=== PATIENT | male | born 1950 | race Caucasian/White ===

== ENCOUNTER 2019-11-04 23:50 | Inpatient (IN) | payer MEDICARE, MEDICAID, SELFPAY ==
[2019-11-04 23:51] VITALS: BP 147/83; PULSE 86; RESP 18; TEMP 36.6; O2SAT 99; BMI 21.2
--- NOTE | 2019-11-04 23:54 | XRR_ITS ---
PROCEDURE INFORMATION: Exam: XR Right Foot Complete Exam date and time: 11/05/2019 12:33 AM Age: 69 years old Clinical indication: Injury or trauma; Initial encounter; Blunt trauma; Foot; Right; Injury date: 11/04/19; Injury details: Fall-twisted ankle. Obvious deformity ankle and open wound TECHNIQUE: Imaging protocol: XR Right foot. Views: 3 or more views. COMPARISON: No relevant prior studies available. FINDINGS: Bones/joints: Mild degenerative changes at the first metatarsal phalangeal joint. Degenerative changes are present in the distal interphalangeal joints and to a lesser degree the more proximal interphalangeal articulations. Spur formation at the insertion of the Achilles' tendon and plantar aponeurosis. Suspected dislocation at the tibiotalar joint. Soft tissues: Normal. XR/XR foot RT min 3V* [id number] IMPRESSION: 1. Spur formation at the insertion of the Achilles' tendon and plantar aponeurosis. 2. Suspected dislocation at the tibiotalar joint. Degenerative changes within the foot
--- NOTE | 2019-11-04 23:54 | XRR_ITS ---
PROCEDURE INFORMATION: Exam: XR Right Ankle Exam date and time: 11/05/2019 12:31 AM Age: 69 years old Clinical indication: Injury or trauma; Initial encounter; Blunt trauma; Right; Injury date: 11/04/19; Injury details: Fall-twisted ankle. Obvious deformity and open wound TECHNIQUE: Imaging protocol: XR Right ankle. Views: 3 or more views. COMPARISON: No relevant prior studies available. FINDINGS: Bones/joints: Obliquely oriented fracture distal aspect of the fibula with displacement. Apparent fracture of the medial malleolus with displacement. Lateral subluxation/dislocation of the talus in relation to the tibia. Soft tissues: Normal. XR/XR ankle RT min 3V* [id number] IMPRESSION: Obliquely oriented fracture distal aspect of the fibula with displacement. Apparent fracture of the medial malleolus with displacement. Lateral subluxation/dislocation of the talus in relation to the tibia.
--- NOTE | 2019-11-04 23:54 | XRR_ITS ---
PROCEDURE INFORMATION: Exam: XR Right Tibia and Fibula Exam date and time: 11/05/2019 12:31 AM Age: 69 years old Clinical indication: Injury or trauma; Initial encounter; Blunt trauma; Lower leg; Injury date: 11/04/19; Injury details: C/O fall and pain RT tib/fib twisting right ankle. Obvious deformity and open injury TECHNIQUE: Imaging protocol: XR Right tibia and fibula. Views: 2 views. COMPARISON: No relevant prior studies available. FINDINGS: Bones/joints: Obliquely oriented fracture involving the distal aspect of the fibula. Apparent lateral dislocation of the talus in relation to the tibial plafond. Please refer to the ankle dictation. Proximal aspect of the tibia and fibula are normal. XR/XR tibia fibula RT 2V [id number] IMPRESSION: 1. Obliquely oriented fracture involving the distal aspect of the fibula. Apparent lateral dislocation of the talus in relation to the tibial plafond. Please refer to the ankle dictation. 2. Proximal aspect of the tibia and fibula are normal.
--- NOTE | 2019-11-04 23:57 | XRR_ITS ---
PROCEDURE INFORMATION: Exam: XR Chest, 1 View Exam date and time: 11/05/2019 12:33 AM Age: 69 years old Clinical indication: Injury or trauma; Initial encounter; Blunt trauma (contusions or hematomas); Injury date: 11/04/19; Injury details: Fall; Twisted RT ankle. Obvious deformity and open wound; Additional info: Fall/injury TECHNIQUE: Imaging protocol: XR of the chest Views: 1 view. COMPARISON: No relevant prior studies available. FINDINGS: Lungs: Unremarkable. No consolidation. Pleural space: Unremarkable. No pleural effusion. No pneumothorax. Heart/Mediastinum: Unremarkable. No cardiomegaly. Bones/joints: Unremarkable. XR/XR chest 1V portable [id number] IMPRESSION: No acute findings.
[2019-11-05] VITALS (22 sets, daily range): BP systolic 104–164; BP diastolic 53–100; PULSE 65–98; RESP 12–20; TEMP 36.4–36.9; O2SAT 90–100
--- NOTE | 2019-11-05 | SCC_ITS ---
PROCEDURE DONE: 2 Kaleb headless screws 4 stabilization of medial malleolus partially-threaded 4.0 mm cannulated screw for stabilization of syndesmosis (distal tibiofibular joint) 33.1 seconds of fluoroscopic guidance, for a cumulative dose of 0.89 mGy, was provided to Dr. Nava by the radiology department. C-arm images of the RIGHT ankle were saved for the patient's permanent record. JOCELYN
[2019-11-05] MEDS: ondansetron 2 mg/ML SDV 2 mL 4 MG IVP ×3 (00:24→17:05)
[2019-11-05] MEDS: morphine 4 mg/mL SDV 1 mL IVP (00:25)
[2019-11-05] MEDS: sodium chloride 0.9% 1,000 ML 100 ML IV ×3 (00:27→21:24)
[2019-11-05 00:41] LABS: Basophils % 0.3 %; Eosinophils # 0.1 10^3/uL (0.0-0.8); Eosinophils % 1.4 %; Hematocrit 34.1 % (42.0-52.0); Hemoglobin 11.6 g/dL (11.7-16.6); Lymphocytes # 1.5 10^3/uL (0.8-4.8); Lymphocytes % 21.6 %; Mean Corpuscular Hemoglobin 30.5 pg (28.0-34.0); Mean Corpuscular Volume 89.7 fL (80-94); Mean Platelet Volume 9.8 fL (7.4-10.4); Monocytes # 0.4 10^3/uL (0.2-0.9); Monocytes % 5.8 %; Neutrophils # 4.98 10^3/uL (1.8-7.7); Neutrophils % 70.3 %; Nucleated Red Blood Cells % 0 %; Platelet Count 163 10^3/cmm (130-400); Red Cell Distribution Width 14.1 % (12.1-15.1); White Blood Count 7.1 10^3/uL (4.0-10.0)
[2019-11-05 00:50] LABS: INR 1.15 (0.8-1.2)
[2019-11-05 00:54] LABS: Alanine Aminotransferase 33 U/L (0-41); Albumin Level 2.9 g/dL (3.5-5.2); Alkaline Phosphatase 175 IU/L (40-130); Anion Gap 12.7 (5-19); Aspartate Amino Transferase 33 U/L (0-40); Blood Urea Nitrogen 26 mg/dL (8-23); Calcium 8.7 mg/dL (8.5-10.5); Carbon Dioxide 32 mmol/L (22-29); Chloride 94 mmol/L (98-107); Globulin 2.1 g/dL (1.3-4.6); Glomerular Filtration Rate 54.9 mL/min (90-130); Glucose 293 mg/dL (65-115); Magnesium 1.7 mg/dL (1.7-2.3); Osmolality Calculated 288 mOsm/kg (285-295); Potassium 3.7 mmol/L (3.5-5.1); Sodium 135 mmol/L (136-145); Total Bilirubin 0.5 mg/dL (0.15-1.2)
--- NOTE | 2019-11-05 01:04 | ED_ITS ---
HPI - Extremity Problem General: Chief complaint: Extremity Injury, Lower Stated complaint: ANKLE PAIN Time Seen by Provider: 11/04/19 23:54 Source: patient, family and EMS Mode of arrival: EMS Limitations: no limitations History of Present Illness: HPI Narrative: Pastor is a 69-year-old male who slipped and fell at home twisting his right ankle. He had an obvious deformity with an open injury and evidence of bone coming out of the wound. Patient son is a medic and he reduced this at home. Patient denies any injury to his head, neck, chest, back, abdomen or any other area other than to his right ankle. Patient has a pulse intact to the foot. He denies any loss of sensation. He denies being on any blood thinners. Associated symptoms: Deny chest pain, fever(s) or rash Review of Systems Const: Denies: fever(s), chills, body aches, fatigue, malaise or diaphoresis Eyes: Denies: change in vision, blurry vision, blind spots, photophobia, eye discharge or eye redness ENMT: Denies: throat pain, odynophagia, hoarseness, swelling of lips/tongue, oral sores, ear or mastoid pain, ear discharge, change in hearing or nasal discharge Card: Denies: chest pain, palpitations, irregular heart rhythm, edema, lightheadedness, syncope, pre-syncope, dyspnea on exertion or orthopnea Resp: Denies: dyspnea, productive cough, non-productive cough, wheezing, hemoptysis or chest congestion GI: Denies: abdominal pain, nausea, vomiting, hematemesis, coffee ground emesis, heartburn, diarrhea, constipation, GI cramping, hematochezia or melena : Denies: flank pain, dysuria, urinary frequency, urinary urgency or hematuria Musc: Reports: joint pain; Denies: neck pain, back pain, extremity pain, extremity swelling, joint swelling, joint redness, joint warmth or joint stiffness Skin/Breast: Denies: rash, pruritus, erythema, skin tenderness or jaundice Neuro: Denies: headache(s), numbness in extremities, weakness in extremities, sensory changes, lack of coordination, difficulty walking, dizziness, vertigo, confusion, Slurred speech present or seizure-like activity Christian/Lymph: Denies: easy bruising, easy bleeding, petechiae, purpura or enlarged lymph nodes All/Imm: Denies: urticaria, throat swelling, tongue swelling, facial swelling or acute wheezing PFSH ED PFSH: Medical History (Updated 11/05/19 @ 02:15 by Isaiah Nava DO) ASHD (arteriosclerotic heart disease) COPD (chronic obstructive pulmonary disease) CVA (cerebral vascular accident) Diabetes Dyslipidemia HTN (hypertension) Myocardial infarction Open bimalleolar fracture of right ankle Surgical History S/P PTCA (percutaneous transluminal coronary angioplasty) Family History Mother CAD (coronary artery disease) PATERNAL Myocardial infarction Father CAD (coronary artery disease) Grandmother CAD (coronary artery disease) Diabetes MATERNAL Myocardial infarction Sister Myocardial infarction CAD (coronary artery disease) Other Stroke Physical Exam Const: COMMON NORMALS: no acute distress, patient oriented x3, no limitations, healthy appearing and well nourished GENERAL APPEARANCE: cooperative, well kempt and well developed HENMT: COMMON NORMALS: normocephalic, atraumatic, external ears normal, EAC's normal and Normal external nose present HEAD & SCALP: normal to inspection, normocephalic and atraumatic FACE & SINUS: normal facial exam and face symmetric NOSE: Normal external nose present and Normal nares present EXTERNAL EAR: Yes external ears normal EXTERNAL AUDITORY CANAL: EAC's normal MOUTH: Normal oral and palatal mucosa present, lip normal and tongue normal Eye: COMMON NORMALS: Equal, round and reactive pupils present and conjunctivae normal GENERAL EYE: appearance normal, both eyes and all related structures ALIGNMENT: Yes alignment normal PERIORBITAL: periorbital findings normal EYELID: eyelids normal CONJUNCTIVA: Yes conjunctivae normal SCLERA: sclerae normal PUPIL: Yes Equal, round and reactive pupils present Neck/C-Spine: COMMON NORMALS: full ROM, no lymphadenopathy, supple, no meningeal signs and no JVD GENERAL: Yes normal visual inspection and Yes trachea midline Chest: COMMONS NORMALS: normal inspection of the chest and normal palpation of entire chest wall Resp: COMMON NORMALS: normal respiratory effort, No retractions and No use of accessory muscles EFFORT & INSPECTION: Yes able to speak in complete sentences and Yes symmetric chest movement AUSCULTATION: no crackles, no rales, no rhonchi and no wheezes Cardio: COMMON NORMALS: no JVD, regular rate, regular rhythm, S1 normal heart sound present and S2 normal heart sound present RATE: regular rate RHYTHM: regular rhythm HEART SOUNDS: S1 normal heart sound present, S2 normal heart sound present, no click, no gallops, no murmurs, no rubs and abnormal split S2 GI: COMMON NORMALS: Soft to palpation and No hepatosplenomegaly present PALPATION: Yes Soft to palpation, No Tenderness to palpation present (GI), No Guarding due to palpation present (GI), No Rigid due to palpation, Yes No hepatosplenomegaly present, No Hernia present, No Palpable mass present and No Pulsatile mass present : COMMON NORMALS: Yes no CVA tenderness BLADDER/KIDNEY EXAM: Yes no CVA tenderness Back/Pelvis: COMMON NORMALS: no CVA tenderness, thoracic and lumbar spine normal to inspection, no thoracic nor lumbar tenderness and thoraco-lumbar ROM normal Extremity: NARRATIVE EXTREMITY EXAM: Musculoskeletal exam is unremarkable except of the right ankle. Her ankle has an obvious 5 cm medial laceration but is neurovascular intact distal. There is no exposed bone. There is clinical evidence of lateral subluxation. Neuro: COMMON NORMALS: patient oriented x3, CN's II-XII intact bilaterally, moves all extremities, no focal motor deficits and no sensory deficits noted MENINGEAL SIGNS: Yes no meningeal signs SPEECH: speech normal Psych: COMMON NORMALS: mental status grossly normal, Normal thought process present, cooperative, normal affect, speech normal and activity/motor behavior normal APPEARANCE: Yes well kempt SPEECH: Yes normal speech THOUGHT PROCESS: Normal thought process present Skin: COMMON NORMALS: no rashes or lesions noted, turgor normal, no jaundice, no petechiae and no mottling GENERAL SKIN EXAM: no rashes or lesions noted and turgor normal Course Vital Signs: Vital signs: Vital Signs Temperature 97.9 F 11/04/19 23:51 Pulse Rate 74 11/05/19 01:30 Respiratory Rate 16 11/05/19 01:30 Blood Pressure 156/83 11/05/19 01:30 Pulse Oximetry 97 11/05/19 01:30 MDM - Extremity (Nontraumatic) MDM Narrative: Medical decision making narrative: The case was reviewed with Dr. Nava, he is going to come take the patient to the operating room for GABRIELLE F. Antibiotics have been given. Dr. Amaral is aware of her consult. Lab Data: Labs: Lab Results 11/04/19 11/04/19 11/05/19 Range/Units 00:30 00:30 00:31 WBC 7.1 (4.0-10.0) 10^3/ uL RBC 3.80 L (4.1-5.3) 10^6/u L Hgb 11.6 L (11.7-16.6) g/dL Hct 34.1 L (42.0-52.0) % MCV 89.7 (80-94) fL MCH 30.5 (28.0-34.0) pg MCHC 34.0 (30.0-36.0) g/dL RDW 14.1 (12.1-15.1) % Plt Count 163 (130-400) 10^3/c mm MPV 9.8 (7.4-10.4) fL Neut % (Auto) 70.3 % Lymph % (Auto) 21.6 % [place] % (Auto) 5.8 % Eos % (Auto) 1.4 % Baso % (Auto) 0.3 % Neut # (Auto) 4.98 (1.8-7.7) 10^3/u L Lymph # (Auto) 1.5 (0.8-4.8) 10^3/u L [place] # (Auto) 0.4 (0.2-0.9) 10^3/u L Eos # (Auto) 0.1 (0.0-0.8) 10^3/u L Baso # (Auto) 0.0 (0.0-0.1) 10^3/u L Nucleated RBC % (a uto) 0 % Nucleated RBCs # 0.0 /100WBC PT 15.10 H (10.5-13.3) SECO NDS INR 1.15 (0.8-1.2) Sodium 135 L (136-145) mmol/L Potassium 3.7 (3.5-5.1) mmol/L Chloride 94 L (98-107) mmol/L Carbon Dioxide 32 H (22-29) mmol/L Anion Gap 12.7 (5-19) BUN 26 H (8-23) mg/dL Creatinine 1.3 H (0.7-1.2) mg/dL GFR Calculation 54.9 L (90-130) mL/min Glucose 293 H (65-115) mg/dL POC Glucose (70-110) mg/dL Calculated Osmolal ity 288 (285-295) mOsm/k g Calcium 8.7 (8.5-10.5) mg/dL Magnesium 1.7 (1.7-2.3) mg/dL Total Bilirubin 0.5 (0.15-1.2) mg/dL AST 33 (0-40) U/L ALT 33 (0-41) U/L Alkaline Phosphata se 175 H (40-130) IU/L Total Protein 5.0 L (6.6-8.7) g/dL Albumin 2.9 L (3.5-5.2) g/dL Globulin 2.1 (1.3-4.6) g/dL 11/05/19 Range/Units 02:13 WBC (4.0-10.0) 10^3/ uL RBC (4.1-5.3) 10^6/u L Hgb (11.7-16.6) g/dL Hct (42.0-52.0) % MCV (80-94) fL MCH (28.0-34.0) pg MCHC (30.0-36.0) g/dL RDW (12.1-15.1) % Plt Count (130-400) 10^3/c mm MPV (7.4-10.4) fL Neut % (Auto) % Lymph % (Auto) % [place] % (Auto) % Eos % (Auto) % Baso % (Auto) % Neut # (Auto) (1.8-7.7) 10^3/u L Lymph # (Auto) (0.8-4.8) 10^3/u L [place] # (Auto) (0.2-0.9) 10^3/u L Eos # (Auto) (0.0-0.8) 10^3/u L Baso # (Auto) (0.0-0.1) 10^3/u L Nucleated RBC % (a uto) % Nucleated RBCs # /100WBC PT (10.5-13.3) SECO NDS INR (0.8-1.2) Sodium (136-145) mmol/L Potassium (3.5-5.1) mmol/L Chloride (98-107) mmol/L Carbon Dioxide (22-29) mmol/L Anion Gap (5-19) BUN (8-23) mg/dL Creatinine (0.7-1.2) mg/dL GFR Calculation (90-130) mL/min Glucose (65-115) mg/dL POC Glucose 240 (70-110) mg/dL Calculated Osmolal ity (285-295) mOsm/k g Calcium (8.5-10.5) mg/dL Magnesium (1.7-2.3) mg/dL Total Bilirubin (0.15-1.2) mg/dL AST (0-40) U/L ALT (0-41) U/L Alkaline Phosphata se (40-130) IU/L Total Protein (6.6-8.7) g/dL Albumin (3.5-5.2) g/dL Globulin (1.3-4.6) g/dL Imaging Data^: CXR: My impression: No acute cardiopulmonary or traumatic findings. Right tib-fib, right ankle, right foot: My impression: Bimalleolar ankle fracture with lateral subluxation. Discharge Plan Discharge Patient Disposition: Placed in Observation Clinical Impression: Open right ankle fracture Qualifiers: Encounter type: initial encounter Open fracture type: open type I or II Qualified Code(s): S82.891B - Other fracture of right lower leg, initial encounter for open fracture type I or II Condition: Stable Discharge Date/Time: 11/05/19 02:00 Coding Level of Care Code ED Inset Cutter for Anahi Fwd Exam Comprehensive
--- NOTE | 2019-11-05 01:05 | ECG_ITS ---
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 Measurements Intervals [place] Rate: 80 P: 69 OR: 162 QRS: 23 QRSD: 92 T: 60 QT: 284 QTc: 329 Interpretive Statements SINUS RHYTHM WITH OCCASIONAL VENTRICULAR PREMATURE COMPLEXES NONSPECIFIC T-WAVE ABNORMALITY No previous ECG available for comparison Electronically Signed On 11-05-2019 15:37:17 CDT by Ange Bernal M.D. [id number]
--- NOTE | 2019-11-05 02:10 | PM.CONSULT ---
Providers/Reason For Consult Consulting Physican/Specialty*: Isaiah Nava DO Orthopedic Surgery Reason for Consult*: Open fracture right ankle Attending Physician: Hospitalist Primary Care Provider: Terra Good MD History of Present Illness History of Present Illness Hakeem Baumann is a 69 year old male with multiple medical problems to include poorly controlled diabetes mellitus, coronary disease, COPD, atherosclerotic vascular disease, status post KS, chronic pain medication in the form of oral morphine and tramadol who sustained a mechanical fall at home after going to the bathroom and turning in the hallway. He states he has a bad neuropathy and this may well have contributed to his fall. He offers no complaints of loss of consciousness palpitations chest pain. Review of Systems Const: Denies: fever(s) or chills Card: Denies: chest pain, palpitations, lightheadedness or syncope Resp: Denies: dyspnea, productive cough or non-productive cough GI: Denies: abdominal pain, nausea or vomiting Musc: Reports: extremity pain (Right ankle pain from injury) Neuro: Reports: numbness in extremities (Due to diabetic neuropathy) Meds/Allergies Home Medications and Allergies Home Medications Medication Instructions Recorded Confirmed Last Taken Type alprazolam 0.25 mg tablet 0.25 mg PO BID 09/02/19 09/03/19 Unknown History aspirin 325 mg tablet,delayed 325 mg PO DAILY 09/02/19 09/03/19 Unknown History release citalopram 10 mg tablet 10 mg PO DAILY 09/02/19 09/02/19 Unknown History cyclobenzaprine 10 mg tablet 10 mg PO TID 09/02/19 09/03/19 Unknown History donepezil 10 mg tablet 10 mg PO DAILY 09/02/19 09/03/19 Unknown History fluticasone propionate 50 1 spray INTRANASAL DAILY 09/02/19 09/03/19 Unknown History mcg/actuation nasal spray,suspension hydrochlorothiazide 50 mg tablet 25 mg PO DAILY tab 09/02/19 09/03/19 Unknown History insulin detemir U-100 100 unit/mL 70 unit SUBCUT BID ml 09/02/19 09/03/19 Unknown History (3 mL) subcutaneous pen labetalol 200 mg tablet 200 mg PO DAILY PRN tab 09/02/19 09/03/19 Unknown History levothyroxine 25 mcg capsule 25 mcg PO DAILY 09/02/19 09/03/19 Unknown History losartan 100 mg tablet 50 mg PO DAILY tab 09/02/19 09/03/19 Unknown History morphine 15 mg immediate release 15 mg PO Q6H PRN 09/02/19 09/03/19 Unknown History tablet niacin 100 mg tablet 100 mg PO BID 09/02/19 09/03/19 Unknown History nitroglycerin 0.4 mg sublingual 0.4 mg SUBLINGUAL Q5M PRN 09/02/19 09/03/19 Unknown History tablet potassium chloride 20 mEq 20 meq PO BID 09/02/19 09/03/19 Unknown History tablet,extended release(part/cryst) pregabalin 50 mg capsule 50 mg PO BID 09/02/19 09/03/19 Unknown History rosuvastatin 5 mg tablet 5 mg PO DAILY 09/02/19 09/03/19 Unknown History terazosin 1 mg capsule 1 mg PO DAILY 09/02/19 09/03/19 Unknown History tramadol 50 mg tablet 50 mg PO Q6H PRN 09/02/19 09/03/19 Unknown History duloxetine 60 mg capsule,delayed 60 mg PO DAILY 09/03/19 09/03/19 Unknown History release Allergies Allergy/AdvReac Type Severity Reaction Status Date / Time baclofen Allergy Unknown Unknown Verified 09/02/19 08:16 cetirizine [From Zyrtec] Allergy Unknown Unknown Verified 09/02/19 08:16 diltiazem [From Cardizem] Allergy Unknown Unknown Verified 09/02/19 08:16 fluticasone Allergy Unknown Unknown Verified 09/02/19 08:16 [From Advair Diskus] methadone Allergy Unknown Unknown Verified 09/02/19 08:16 Oxacephems Allergy Unknown Unknown Verified 09/02/19 08:16 oxycodone Allergy Unknown Unknown Verified 09/02/19 08:16 salmeterol Allergy Unknown Unknown Verified 09/02/19 08:16 [From Advair Diskus] zonisamide [From Zonegran] Allergy Unknown Unknown Verified 09/02/19 08:16 cyclobenzaprine Allergy Unknown Verified 09/02/19 08:16 [From Flexeril] Current Medications Current Medications Generic Name Dose Route Start Last Admin Trade Name Freq PRN Reason Stop Dose Admin Sodium Chloride 1,000 mls @ 100 mls/hr 11/04/19 23:45 11/05/19 01:50 Sodium Chloride 0.9% IV Infused .Q10H ЕЛЕНА Infusion PFSH Acute PFSH: Medical History (Updated 11/05/19 @ 02:15 by Isaiah Nava DO) ASHD (arteriosclerotic heart disease) COPD (chronic obstructive pulmonary disease) CVA (cerebral vascular accident) Diabetes Dyslipidemia HTN (hypertension) Myocardial infarction Open bimalleolar fracture of right ankle Surgical History S/P PTCA (percutaneous transluminal coronary angioplasty) Family History Mother CAD (coronary artery disease) PATERNAL Myocardial infarction Father CAD (coronary artery disease) Grandmother CAD (coronary artery disease) Diabetes MATERNAL Myocardial infarction Sister Myocardial infarction CAD (coronary artery disease) Other Stroke Vitals/I&O/Wt Last Vital Signs Temp 97.9 F 11/04/19 23:51 Pulse 74 11/05/19 01:30 Resp 16 11/05/19 01:30 BP 156/83 11/05/19 01:30 Pulse Ox 97 11/05/19 01:30 11/04/19 11/04/19 11/05/19 14:59 22:59 06:59 Intake Total 1050 / 1050 Balance 1050 / 1050 Weight last 48 hrs Weight 152 lb Physical Exam Narrative: EXAM NARRATIVE: 69-year-old white male in mild distress. He looks older than his stated age. Head is normocephalic atraumatic. Sclera are anicteric. Membranes are moist. Neck is supple. Lungs are clear to auscultation no wheeze rales or crackles auscultated. Heart is regular rate and rhythm. Abdomen soft nontender Examination right ankle has a dressing overlying the wound which is moist and has bloody tingeing. Toes have normal capillary refill. He has some sensation to the toes but states they are abnormal due to his underlying neuropathy. Review of radiographs taken in the emergency room show a displaced right bimalleolar ankle fracture with disruption of the syndesmosis as well. By history the patient's son who was a MP did self aid but he cared reduce the gross deformity in the field. A&P Assessment and plan (1) Open bimalleolar fracture of right ankle: Plan will be to take the patient to the operating room on an emergent basis this evening to washout and debride his wound stabilize the fractures as well as the distal tibiofibular joint and attempt to perform loose primary closure over the medial aspect of the joint. Cultures will be taken to monitoring potential organisms that could be left after debridement. Patient be started on intravenous antibiotics postoperatively and continued on oral antibiotics on outpatient basis. His care is likely to require greater than 2 overnight stays for pain control mobilization and disposition to home with home health versus assisted facility. Due to the patient's multiple medical issues. He is at risk for wound healing complications, he is at risk for developing a neuropathic or Charcot ankle which could cause disruption of the implants. He is at risk of having wound healing complications and displacement of his hardware or fracture that could result in the need to perform a below-knee amputation to salvage his limb. Medical complications surrounding his care can include blood clots, heart attack, stroke and risk up to including . With the patient's consent we will proceed to the OR on an emergent basis. Status: Acute (2) ASHD (arteriosclerotic heart disease): Status: Acute (3) COPD (chronic obstructive pulmonary disease): Status: Acute (4) HTN (hypertension): Status: Acute (5) Diabetes: Status: Acute (6) Dyslipidemia: Status: Acute Consult Attestations Medical Necessity Statement: Patient's care likely to cross over 2 midnight stays due to his multiple medical comorbidities and his open fracture dislocation of his ankle. Time Spent in Patient Care: 16 - 35 minutes (>than 50% of time spent in counselling and/or direct pt care on unit). Coding Level of Care Code Acute Buoy Tender for Anahi Marcial Diagnoses Open bimalleolar fracture of right ankle S82.841B ASHD (arteriosclerotic heart disease) I25.10 COPD (chronic obstructive pulmonary disease) J44.9 HTN (hypertension) I10 Diabetes E11.9 Dyslipidemia E78.5
[2019-11-05 02:16] LABS: Glucose Point of Care 240 mg/dL (70-110)
--- NOTE | 2019-11-05 02:17 | ANES.PREANE2 ---
Pre-Anesthetic Assessment Pre-Anesthetic Assessment: Height/Weight: Height 1.8 m Weight 68.946 kg Temp Pulse Resp BP Pulse Ox 97.9 F 74 16 156/83 97 11/04/19 23:51 11/05/19 01:30 11/05/19 01:30 11/05/19 01:30 11/05/19 01:30 Preop Diagnosis: open right bimalleolar ankle fracture Proposed Procedure: Operation Date: 11/05/19 02:20 Proposed Procedures p ORIF Ankle(Right) - Isaiah Nava DO Was Beta Jenifer taken within 24 hours: Yes Last intake: Intake Last Liquid Date 11/04/19 Last Liquid Time 21:00 Last Solid Date 11/04/19 Last Solid Time 16:00 Social: Social History: No alcohol and No tobacco Exam: Pre-Anes Outpt Exam: alert, oriented x 3 and clear to auscultation bilaterally Airway: Submandibular: WNL Cervical ROM: WNL MP: 2 Dentition: Chipped and Loose Pulmonary: Pulmonary: COPD, GALINDO and SOB CV/HEM: CV/HEM: CAD, HTN and FL : : None reported Hepatic: Hepatic: None reported GI: GI: None reported Metabolic: Metabolic: DM Musc/skel: Musc/skel: Lower Back Pain and OA/DJD Neuropsych: Neuropsych: CVA and Neuropathy Anesthetic Plan: ASA status: 4E Anesthesia: Anesthesia Evaluation and General Risk of > 500 ml blood loss (7ml/kg in children): No Meds/Allergies Current Medications: Current Medications Generic Name Dose Route Start Last Admin Trade Name Freq PRN Reason Stop Dose Admin Sodium Chloride 1,000 mls @ 100 m ls/hr 11/04/19 23:45 11/05/19 01:50 Sodium Chloride 0.9% IV Infused .Q10H ЕЛЕНА Infusion PFSH Anesthesia PFSH: Medical History (Updated 11/05/19 @ 02:15 by Isaiah Nava DO) ASHD (arteriosclerotic heart disease) COPD (chronic obstructive pulmonary disease) CVA (cerebral vascular accident) Diabetes Dyslipidemia HTN (hypertension) Myocardial infarction Open bimalleolar fracture of right ankle Surgical History S/P PTCA (percutaneous transluminal coronary angioplasty) Family History Mother CAD (coronary artery disease) PATERNAL Myocardial infarction Father CAD (coronary artery disease) Grandmother CAD (coronary artery disease) Diabetes MATERNAL Myocardial infarction Sister Myocardial infarction CAD (coronary artery disease) Other Stroke Data Anesthesia CBC & Chem 7: 11/04/19 00:30 11/04/19 00:30 Other Labs: Laboratory Results - last 48 hr 11/04/19 11/04/19 11/05/19 00:30 00:30 00:31 WBC 7.1 RBC 3.80 L Hgb 11.6 L Hct 34.1 L MCV 89.7 MCH 30.5 MCHC 34.0 RDW 14.1 Plt Count 163 MPV 9.8 Neut % (Auto) 70.3 Lymph % (Auto) 21.6 [place] % (Auto) 5.8 Eos % (Auto) 1.4 Baso % (Auto) 0.3 Neut # (Auto) 4.98 Lymph # (Auto) 1.5 [place] # (Auto) 0.4 Eos # (Auto) 0.1 Baso # (Auto) 0.0 Nucleated RBC % (auto) 0 Nucleated RBCs # 0.0 PT 15.10 H INR 1.15 Sodium 135 L Potassium 3.7 Chloride 94 L Carbon Dioxide 32 H Anion Gap 12.7 BUN 26 H Creatinine 1.3 H GFR Calculation 54.9 L Glucose 293 H POC Glucose Calculated Osmolality 288 Calcium 8.7 Magnesium 1.7 Total Bilirubin 0.5 AST 33 ALT 33 Alkaline Phosphatase 175 H Total Protein 5.0 L Albumin 2.9 L Globulin 2.1 11/05/19 02:13 WBC RBC Hgb Hct MCV MCH MCHC RDW Plt Count MPV Neut % (Auto) Lymph % (Auto) [place] % (Auto) Eos % (Auto) Baso % (Auto) Neut # (Auto) Lymph # (Auto) [place] # (Auto) Eos # (Auto) Baso # (Auto) Nucleated RBC % (auto) Nucleated RBCs # PT INR Sodium Potassium Chloride Carbon Dioxide Anion Gap BUN Creatinine GFR Calculation Glucose POC Glucose 240 Calculated Osmolality Calcium Magnesium Total Bilirubin AST ALT Alkaline Phosphatase Total Protein Albumin Globulin Cardiac Studies: No Data to Display
[2019-11-05] MEDS: lidocaine 1% INJ 20 mL IM (03:22)
--- NOTE | 2019-11-05 04:10 | XRR_ITS ---
PROCEDURE INFORMATION: Exam: XR Right Ankle Exam date and time: 11/05/2019 4:15 AM Age: 69 years old Clinical indication: Injury or trauma; Fall; Initial encounter; Fracture, traumatic; Open fracture, type i or ii; Ankle; Right; Bimalleolar; Injury date: Yesterday; Patient HX: Orif; Additional info: Or pics TECHNIQUE: Imaging protocol: XR Right ankle. Views: 3 or more views. COMPARISON: CR XR ankle RT min 3V* [id number] 11/04/2019 11:56 PM FINDINGS: Bones/joints: Large number of fluoroscopic images demonstrate surgical fixation of the lateral and medial malleolus as well as syndesmotic screw placement. XR/XR ankle RT min 3V* [id number] IMPRESSION: Large number of fluoroscopic images demonstrate surgical fixation of the lateral and medial malleolus as well as syndesmotic screw placement.
[2019-11-05] MEDS: neomycin-poly-bacitracin oint 28 gm 28 APPLIC (04:31)
--- NOTE | 2019-11-05 05:00 | PC.NURSE ---
Received report from OMKAR Gomez. Patient had ORIF to right ankle. Estimated blood loss was reported as 20 mL. Patient brought to room via ICU bed. Blood pressure elevated upon arriving to room. 0515 Blood pressure stabilizing. Patient is alert and oriented and rates pain at 4/10. Dressing is intact and no drainage is present. Will continue to monitor.
--- NOTE | 2019-11-05 05:09 | P.OP_ITS ---
Operative Report Date of procedure: November 05, 2019 Pre-op Diagnosis: Grade II open right bimalleolar ankle fracture. Sprain right distal tibiofibular joint Post-op diagnosis: same Post-op Findings: Satisfactory reduction of fractures and placement of implants No gross contamination Implants: Kaleb plate and screws for lateral malleolar fixation 2 Kaleb headless screws 4 stabilization of medial malleolus partially-threaded 4.0 mm cannulated screw for stabilization of syndesmosis (distal tibiofibular joint) Pathology: other Pathology: Aerobic and anaerobic cultures taken of open wound Surgeon: Isaiah Nava Anesthesia: General Estimated blood loss (mL): 20 Tourniquet time (min): 90 (At 300 mmHg pressure) Complications: No orthopedic complications Patient was noted to have atrial fibrillation with rapid ventricular response at the beginning of the procedure but then converted back to normal sinus rhythm. For this reason we elected to transfer him to the ICU for closer observation postoperatively Condition: stable Disposition: ICU Brief History: 69-year-old white male fell at home sustaining an open fracture of his right ankle. X-rays show a displaced bimalleolar right ankle fracture. There also appears to be disruption of the distal tibiofibular joint or syndesmosis. Risk, benefits potential complications of surgery were discussed with the patient risks include are not limited to wound healing complications potential fracture not healing hardware complications. There is potential for nerve/blood vessel/injury. Medical complications can include blood clots, heart attack, stroke risk up to including . All questions answered patient agreeable to proceed with surgery. Procedure: 2 g Ancef Patient was identified. Surgical site was signed. Surgical permit was signed. The patient received 2 g of Ancef intravenously for surgical prophylaxis. He was taken to the operating room. His placed supine operative table. His placed under general anesthesia without difficulty. A bump was placed under the ipsilateral buttock. A tourniquet was placed but the upper aspect of the right thigh. Right lower extremity was sterilely prepped and draped usual fashion. Timeout was performed. The operative limb was exsanguinated using Esmarch bandage tourniquet inflated 300 mmHg pressure. Patient had approximate 4 cm transverse laceration at the level of the medial malleolar fracture. No gross contamination was noted. The wound is irrigated with Betadine-containing saline solution and antibiotic containing saline solution and a moist sponge was placed in this area. Attention was turned to the lateral malleolar fracture. A 20 cm incision was made from the tip of the distal fibula along the shaft proximally. Full-thickness skin flaps were made. The fracture sites were identified. The patient had a comminuted 4 part fracture of the distal fibula and lower shaft of the fibula. We used 2 tenaculum forceps to reduce the fracture fragments after the fracture sites had been curetted of soft tissue hematoma fracture fragments that would otherwise hand are the reduction. We then chose an appropriate length [place] distal fibular plate and pinned it in place using olive wires pr oximally and distally. These fluoroscopic imaging to visualize appropriate reduction and placement of our plate. We then used to cortical screws proximal to the fractures to bring the plate down to the proximal fibular shaft. Then used a series of locking screws in the distal fibula using fluoroscopic imaging to ensure that our fixation was unicortical with the locking screws distally to prevent penetration into the joint. Additional locking screws were used to proximally. Attention was then turned to the medial malleolar fracture. I extended the transverse incision proximally and distally at either end of the incision to allow us to create flaps to visualize the fracture better. There is no entrapment of the posterior tibialis tendon within the fracture site. One small bony fragment with articular cartilage was removed from the ankle joint through the medial aspect. We then irrigated the joint with Betadine-containing saline solution and antibiotic containing saline solution. An reduce the fracture using the tenaculum bone-holding forceps. 2 partially-threaded guidewires for the cannulated screw system were then placed with tip of the medial malleolus proximally across the fracture. These fluoroscopic imaging to verify the position of the guidewires. We then overdrilled the guidewires inserted to 4.0 mm x 40 mm headlessFixos crews from the [employer] tray. I then tu rned my attention to stabilization of the distal tibiofibular joint. A potentially left screw holes available for placement of a button suspension device and drilled a guidewire from the lateral fibula and across to the medial aspect of the tibial metaphysis. The guidewire angled off of the medial malleolar fixation screws obliquely. I was concerned that I may have difficulty passing a button suspension device that threaded [employer] headless screws within the tibial metaphysis could actually cause the suture break. For this reason I switched to a cannulated guidewire measured and placed in a partially-threaded 40 cancellus screw from the lateral fibula with the screw threads engaging on the medial tibial metaphysis but not being either visibly or palpably overly proud on the medial tibial metaphysis. Symmetric spacing was noted on the ankle mortise. Fluoroscopic imaging demonstrated satisfactory reduction of the fractures without apparent hardware complication. The medial lateral incisions were irrigated with Betadine-containing saline solution and antibiotic containing saline solution. The wounds were closed in layers with both ole and 3-0 nylon sutures on skin. Antibiotic ointment was applied the incision sites after the incisions had been injected bilaterally for postoperative pain relief of 1% lidocaine and half percent Marcaine. Sterile dressings were applied patient placed in a posterior splint maintaining the ankle in neutral position. The tourniquet was deflated during application of dressings. The patient was aroused from general anesthesia and taken to the intensive care unit per plan as the patient initially upon induction had developed atrial fibrillation with a rapid ventricular response. This decision was made with the hospitalist covering for the Intensive Care Unit that evening. She was in agreement with that plan. All counts were correct.
[2019-11-05] MEDS: sodium chloride 0.9% 1,000 ML 80 ML IV (05:36)
--- NOTE | 2019-11-05 06:09 | PM.HP ---
Providers/Chief Complaint Admitting Physician: Amy Lauren MD Primary Care Provider: Terra Good MD Chief Complaint: ANKLE PAIN History of Present Illness Hakeem Baumann is a 69 year old male who presented to the emergency room after a fall at home. He was walking down the [place] and just fell. He has a history of episodes of syncope previously. From his description it sounds like orthostasis potentially related to some of his medications. Tonight when he fell he had severe pain in his right ankle. He sustained a bimalleolar fracture that was open and was taken to the OR for surgical intervention by Dr. Nava. Perioperatively he had some transient A. fib with RVR. He received some labetalol and converted to sinus rhythm. He denies any recent chest pain or difficulty breathing, states he has been doing good for the most part. Primary complaint has been constipation and heartburn. He was recently started on Linzess and Meprazole. He does have significant peripheral neuropathy that sounds like it is been worsening as well as severe restless leg syndrome. He is being admitted to the ICU postoperatively for close monitoring secondary to comorbid conditions and transient A. fib with RVR. Review of Systems Const: Denies: fever(s), chills or change in appetite Eyes: Denies: change in vision ENMT: Reports: dry mouth and nasal congestion; Denies: throat pain Card: Denies: chest pain, palpitations or edema Resp: Denies: dyspnea, productive cough or non-productive cough GI: Reports: abdominal pain, vomiting, heartburn (clear food association) and diarrhea; Denies: nausea or constipation : Denies: difficulty urinating or urinary frequency Musc: Reports: back pain, extremity pain and muscle weakness Skin/Breast: Reports: rash (at injection sites) and sores (legs); Denies: pruritus Neuro: Reports: numbness in extremities and other (neuropathy pain in feet); Denies: headache(s), weakness in extremities or dizziness Psych: Denies: anxiety or depression Christian/Lymph: Denies: easy bruising or easy bleeding Medications/Allergies Home Medications Medication Instructions Recorded Confirmed Last Taken Type alprazolam 0.25 mg tablet 0.25 mg PO BID 09/02/19 09/03/19 Unknown History aspirin 325 mg tablet,delayed 325 mg PO DAILY 09/02/19 09/03/19 Unknown History release citalopram 10 mg tablet 10 mg PO DAILY 09/02/19 09/02/19 Unknown History cyclobenzaprine 10 mg tablet 10 mg PO TID 09/02/19 09/03/19 Unknown History donepezil 10 mg tablet 10 mg PO DAILY 09/02/19 09/03/19 Unknown History fluticasone propionate 50 1 spray INTRANASAL DAILY 09/02/19 09/03/19 Unknown History mcg/actuation nasal spray,suspension hydrochlorothiazide 50 mg tablet 25 mg PO DAILY tab 09/02/19 09/03/19 Unknown History insulin detemir U-100 100 unit/mL 70 unit SUBCUT BID ml 09/02/19 09/03/19 Unknown History (3 mL) subcutaneous pen labetalol 200 mg tablet 200 mg PO DAILY PRN tab 09/02/19 09/03/19 Unknown History levothyroxine 25 mcg capsule 25 mcg PO DAILY 09/02/19 09/03/19 Unknown History losartan 100 mg tablet 50 mg PO DAILY tab 09/02/19 09/03/19 Unknown History morphine 15 mg immediate release 15 mg PO Q6H PRN 09/02/19 09/03/19 Unknown History tablet niacin 100 mg tablet 100 mg PO BID 09/02/19 09/03/19 Unknown History nitroglycerin 0.4 mg sublingual 0.4 mg SUBLINGUAL Q5M PRN 09/02/19 09/03/19 Unknown History tablet potassium chloride 20 mEq 20 meq PO BID 09/02/19 09/03/19 Unknown History tablet,extended release(part/cryst) pregabalin 50 mg capsule 50 mg PO BID 09/02/19 09/03/19 Unknown History rosuvastatin 5 mg tablet 5 mg PO DAILY 09/02/19 09/03/19 Unknown History terazosin 1 mg capsule 1 mg PO DAILY 09/02/19 09/03/19 Unknown History tramadol 50 mg tablet 50 mg PO Q6H PRN 09/02/19 09/03/19 Unknown History duloxetine 60 mg capsule,delayed 60 mg PO DAILY 09/03/19 09/03/19 Unknown History release linaclotide [Linzess] mcg 11/05/19 11/05/19 Unknown History omeprazole 11/05/19 11/05/19 Unknown History Allergies Allergy/AdvReac Type Severity Reaction Status Date / Time baclofen Allergy Unknown Unknown Verified 09/02/19 08:16 cetirizine [From Zyrtec] Allergy Unknown Unknown Verified 09/02/19 08:16 diltiazem [From Cardizem] Allergy Unknown Unknown Verified 09/02/19 08:16 fluticasone Allergy Unknown Unknown Verified 09/02/19 08:16 [From Advair Diskus] methadone Allergy Unknown Unknown Verified 09/02/19 08:16 Oxacephems Allergy Unknown Unknown Verified 09/02/19 08:16 oxycodone Allergy Unknown Unknown Verified 09/02/19 08:16 salmeterol Allergy Unknown Unknown Verified 09/02/19 08:16 [From Advair Diskus] zonisamide [From Zonegran] Allergy Unknown Unknown Verified 09/02/19 08:16 cyclobenzaprine Allergy Unknown Verified 09/02/19 08:16 [From Flexeril] PFSH Acute PFSH: Medical History (Updated 11/05/19 @ 08:38 by Amy Lauren MD) ASHD (arteriosclerotic heart disease) COPD (chronic obstructive pulmonary disease) CVA (cerebral vascular accident) DDD (degenerative disc disease) Diabetes Dyslipidemia HTN (hypertension) Open bimalleolar fracture of right ankle Polyneuropathy RLS (restless legs syndrome) Surgical History (Updated 11/05/19 @ 08:22 by Amy Lauren MD) History of eye surgery S/P PTCA (percutaneous transluminal coronary angioplasty) S/P tonsillectomy Family History Mother CAD (coronary artery disease) PATERNAL Myocardial infarction Father CAD (coronary artery disease) Grandmother CAD (coronary artery disease) Diabetes MATERNAL Myocardial infarction Sister Myocardial infarction CAD (coronary artery disease) Other Stroke Social History (Updated 11/05/19 @ 06:20 by Amy Lauren MD) Smoking and tobacco status: former smoker Alcohol intake: never Substance/Drug Use: never Household members: spouse and children Supplemental PFSH Information: with lung cancer with metastases Vitals/I&O/Wt Last Vital Signs Temp 97.9 F 11/05/19 05:14 Pulse 73 11/05/19 05:38 Resp 12 11/05/19 05:38 BP 140/65 11/05/19 05:38 Pulse Ox 100 11/05/19 05:38 11/04/19 11/04/19 11/05/19 14:59 22:59 06:59 Intake Total 2300 / 2300 Output Total 270 / 270 Balance 2029 Weight last 48 hrs Weight 68.946 kg Physical Exam Const: OTHER: Alert, oriented x3, cooperative HENMT: OTHER: Mild bitemporal wasting, alopecia, nasopharynx is clear, oropharynx with dry mucous membranes Eye: OTHER: Pupils equally round Neck/C-Spine: OTHER: Supple Resp: OTHER: Clear to auscultation bilaterally, no rales rhonchi or wheezes noted Cardio: OTHER: Regular rate and rhythm, no murmurs gallops or rubs. GI: OTHER: Abdomen soft, nontender, nondistended with positive bowel sounds : OTHER: Normal external genitalia Extremity: NARRATIVE EXTREMITY EXAM: Right lower extremity in a splint postoperatively, can move toes of the right foot although with some discomfort, capillary refill is brisk to both feet. Pitting edema is noted to the left ankle and leg and I suspect this is similar to the right lower extremity Neuro: OTHER: Face symmetric, speech clear, handgrip equal Psych: OTHER: Normal affect Skin: OTHER: Has some variations in pigmentation noted. To the lower extremities he has some sores in different stages of healing but nothing that requires acute intervention at the moment. Data : 11/04/19 00:30 11/04/19 00:30 Other Labs: Short CBC 11/04/19 Range/Units 00:30 WBC 7.1 (4.0-10.0) 10^3/uL Hgb 11.6 L (11.7-16.6) g/dL Hct 34.1 L (42.0-52.0) % Plt Count 163 (130-400) 10^3/cmm BMP 11/04/19 00:30 Sodium 135 L Potassium 3.7 Chloride 94 L Carbon Dioxide 32 H BUN 26 H Creatinine 1.3 H Glucose 293 H Calcium 8.7 Liver Function 11/04/19 Range/Units 00:30 Total Bilirubin 0.5 (0.15-1.2) mg/dL AST 33 (0-40) U/L ALT 33 (0-41) U/L Alkaline Phosphatase 175 H (40-130) IU/L Albumin 2.9 L (3.5-5.2) g/dL EKG 1: I personally reviewed and interpreted this EKG as follows: My Interpretation: Twelve-lead EKG with sinus rhythm with PVC noted, no acute ST segment changes A&P Assessment and plan (1) Fall at home: No loss of consciousness. Patient has had recurrent episodes of falling and near syncope. Sounds like he may have some orthostasis as well as a contributing factor of neuropathy that has worsened over time. No preceding symptoms prior to this episode. Status: Acute Qualifiers: Encounter type: initial encounter Qualified Code(s): W19.XXXA - Unspecified fall, initial encounter; Y92.009 - Unspecified place in unspecified non-institutional (private) residence as the place of occurrence of the external cause (2) Open bimalleolar fracture of right ankle: Status: Acute Qualifiers: Encounter type: initial encounter Open fracture type: open type I or II Qualified Code(s): S82.841B - Displaced bimalleolar fracture of right lower leg, initial encounter for open fracture type I or II (3) Transient atrial fibrillation: Noted in the immediate perioperative timeframe, converted to sinus rhythm after some labetalol. Patient denies a history of this abnormal rhythm. It could be a contributor to the episodes of syncope that he has. 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 (6) Polyneuropathy: Status: Chronic (7) RLS (restless legs syndrome): Status: Chronic Additional A&P Information Inpatient admission Postoperative management with pain control, recommended antibiotics and initiation of DVT prophylaxis Insulin therapy for diabetes Need to fully clarify home medications I have continued aspirin, statin, losartan Recheck EKG, telemetry monitoring Insulin therapy for diabetes Continued Lyrica, levothyroxine; agree with continuation of citalopram and Aricept Have held on the Linzess currently but will add stool softeners Continue PPI Address other medicines once we get the clarification needed We will need to evaluate patient's ability to discharge home safely prior to disposition Given history of recurrent syncope in the transient A. fib noted, may consider Holter monitor or even potentially event monitor at discharge. Patient follows with Dr. Arce chronically so could discuss with him. Syncope is not a new problem for Mr. Baumann but from what I can gather the finding of A. fib with RVR transiently may be new. Currently he is in sinus rhythm Supportive care otherwise Of note patient's has stage IV cancer and this is a concerning factor for Mr. Baumann understandably Full code Attestations Medical Necessity Statement*: Anticipated stay greater than 2 midnights in this patient with open fracture to the lower extremity after a fall at home. Plans are as indicated. He does have multiple comorbid conditions. He had transient arrhythmia in the operating room. Coding Level of Care Code Acute Talcer for Chg Fwd Diagnoses Fall at home W19.XXXA; Y92.009 Encounter type: initial encounter Open bimalleolar fracture of right ankle S82.841B Encounter type: initial encounter Open fracture type: open type I or II Transient atrial fibrillation I48.91 ASHD (arteriosclerotic heart disease) I25.10 Diabetes E11.22; N18.3; Z79.4 Diabetes mellitus type: type 2 Diabetes mellitus detention insulin use: with medical terminologist use Diabetes mellitus complication status: with kidney complications Chronic kidney disease stage: stage 3 (moderate) Diabetes mellitus complication detail: with chronic kidney disease Polyneuropathy G62.9 RLS (restless legs syndrome) G25.81
[2019-11-05] MEDS: HYDROmorphone 1 mg/mL INJ 1 mL IVP (06:32)
[2019-11-05 08:10] LABS: Glucose Point of Care 444 mg/dL (70-110)
--- NOTE | 2019-11-05 08:18 | ECG_ITS ---
[facility] Test Date: 2019-11-05 Pat Name: Hakeem Baumann Department: Room: ICU11 Gender: Male [employer]: : 1950 Requested By: Enzo Guan Order Number: [id number] Viola MD: Ange Bernal M.D. Measurements Intervals [place] Rate: 82 P: 88 MI: 163 QRS: 23 QRSD: 99 T: 55 QT: 403 QTc: 472 Interpretive Statements SINUS RHYTHM WARNING: DATA QUALITY MAY AFFECT INTERPRETATION Compared to ECG 11/05/2019 00:14:25 Ventricular premature complex(es) no longer present T-wave abnormality no longer present Electronically Signed On 11-05-2019 15:35:57 CDT by Ange Bernal M.D. [email or web address]
--- NOTE | 2019-11-05 08:18 | USCV_ITS ---
Hakeem Baumann Age: 69 Gender: M : 1950 Exam Date: 11/05/2019 13:08 Ordering Phys: Enzo Guan MD Technologist: Mannie Nails [place] [facility] [place] new onset a fib BP: 127 / 80 HR: 82 Rhythm: Sinus Technical Quality: Technically difficult study MEASUREMENTS (Male / Female) Normal Values 2D ECHO LV Diastolic Diameter PLAX 3.8 cm 4.2 - 5.9 / 3.9 - 5.3 cm LV Systolic Diameter PLAX 3.0 cm IVS Diastolic Thickness 0.9 cm 0.6 - 1.0 / 0.6 - 0.9 cm IVS Systolic Thickness 1.3 cm LVPW Diastolic Thickness 1.3 cm 0.6 - 1.0 / 0.6 - 0.9 cm LVPW Systolic Thickness 1.0 cm LVOT Diameter 2.1 cm LV Ejection Fraction MOD 2C 67.2 % LV Ejection Fraction 2C AL 66.9 % LA Diameter 3.6 cm LA Width 3.1 cm LA Height 4.2 cm RA Width 2.9 cm RA Height 4.8 cm Aorta at Sinotubular Diameter 2.8 cm M-MODE LV Diastolic Diameter MM 4.8 cm 4.2 - 5.9 / 3.9 - 5.3 cm LV Systolic Diameter MM 3.6 cm LV Ejection Fraction MM Teich 49.1 % IVS Diastolic Thickness MM 1.1 cm 0.6 - 1.0 / 0.6 - 0.9 cm IVS Systolic Thickness MM 1.4 cm LVPW Diastolic Thickness MM 1.4 cm 0.6 - 1.0 / 0.6 - 0.9 cm LVPW Systolic Thickness MM 2.0 cm RV Diastolic Diameter MM 1.5 cm Aortic Annulus Diameter 3.8 cm LA Ao Ratio MM 1.0 MV E Point Septal Separation 1.1 cm DOPPLER AV Peak Velocity 183.0 cm/s LVOT Peak Velocity 95.0 cm/s AV Area Cont Eq vti 1.9 cm squared AV Area Cont Eq pk 1.8 cm squared MV Area PHT 5.0 cm squared Mitral E to A Ratio 0.7 MV E' Velocity 10.0 cm/s Mitral E to MV E' Ratio 6.6 Mitral E to LV E' Lateral Ratio 6.2 Mitral E to LV E' Septal Ratio 7.1 TR Peak Velocity 179.0 cm/s TR Peak Gradient 12.9 mmHg TV Peak E Velocity 87.0 cm/s Right Atrial Pressure 3.0 mmHg Pulmonary Artery Systolic Pressu 15.8 mmHg FINDINGS Left Ventricle Normal left ventricular cavity size. Normal left ventricular systolic function. No regional wall motion abnormalities. Left ventricular ejection fraction is estimated at 55 %. Grade I/IV diastolic dysfunction (abnormal relaxation filling pattern), normal to mildly elevated filling pressures. Right Ventricle The right ventricle is normal in size and function. Right Atrium The right atrium is normal in size. Left Atrium The left atrium is normal in size. Mitral Valve Moderately thickened mitral valve. Mild mitral annular calcification. No mitral valve stenosis. Trace mitral valve regurgitation. Aortic Valve Severe aortic valve calcification. Mild aortic valve stenosis, mean gradient 5.8 mmHg, CHIKIS 1.9 cm squared. Tricuspid Valve Structurally normal tricuspid valve without significant stenosis or regurgitation. Pulmonary artery systolic pressure is normal. Pulmonic Valve Structurally normal pulmonic valve without significant stenosis. There is no pulmonic regurgitation. Pericardium Normal pericardium without effusion. Aorta Normal ascending aorta dimension. CONCLUSIONS 1-Normal left ventricular cavity size. Normal left ventricular systolic function. No regional wall motion abnormalities. Left ventricular ejection fraction is estimated at 55 %. Grade I/IV diastolic dysfunction (abnormal relaxation filling pattern), normal to mildly elevated filling pressures. 2-Moderately thickened mitral valve. Mild mitral annular calcification. No mitral valve stenosis. Trace mitral valve regurgitation. 3-Severe aortic valve calcification. Mild aortic valve stenosis, mean gradient 5.8 mmHg, CHIKIS 1.9 cm squared. 4-There is no pericardial effusion. 5-Pulmonary artery systolic pressure is within normal limits. 6-Right atrial pressure is around 5 mm of mercury. 7-There are no prior echocardiogram studies to compare. Conner Cadena MD (Electronically Signed) Final Date: 05 November 2019 18:53 S
--- NOTE | 2019-11-05 08:28 | PC.NURSE ---
supine 45 degrees, 1+ non pitting to RUE, 1+ pitting to LLE, dressing to RLE cleand dry and intact, AO x4, call light within reach
[2019-11-05] MEDS: insulin glargine 100 units/1 mL 30 UNIT SUBCUT (08:47)
[2019-11-05 08:49] LABS: Bilirubin Urine Neg (NEGATIVE); Blood Urine Neg (Negative); Glucose Urine UA 4+ (Normal); Ketones Urine 1+ (Negative); Leukocyte Esterase Urine Negative (Negative); Nitrate Urine Negative (Negative); Protein Urine 1+ (Negative); Specific Gravity, Urine 1.015 (1.005-1.030); Urine Appearance Clear (CLEAR); Urine Color Yellow (Yellow); Urobilinogen Urine Norm (Negative)
[2019-11-05 09:09] LABS: Add Urine Culture? No; Bacteria Urine TRACE; RBC Urine RARE /hpf (0-2); Squamous Epithelial Cell Urine RARE (0-5); WBC Urine RARE /hpf (0-5)
[2019-11-05 09:12] LABS: Estmated Average Glucose 332; Hemoglobin A1C 13.2 % (4.0-6.0)
[2019-11-05 09:16] LABS: Troponin(5th) Baseline 92 ng/L (0-15)
[2019-11-05 09:23] LABS: Thyroid Stimulating Hormone 1.26 uIU/mL (0.27-4.20)
[2019-11-05] MEDS: morphine IR 15 mg Tablet PO ×2 (09:50→17:05)
--- NOTE | 2019-11-05 10:16 | CT_ITS ---
WS: [id number] CT HEAD NONCONTRAST HISTORY: syncope, new onset afib, evaluate for stroke TECHNIQUE: Contiguous axial imaging performed through the brain in 2.5 mm imaging. Bone and soft tiss ue windows. Sagittal and coronal reformats reviewed. All CT scans at [facility] use at le ast one of these dose optimization techniques: automated exposure control; mA and/or kV adjustment pe r patient size (includes targeted exams where dose is matched to clinical indication); or iterative r econstruction. DLP: 841.69 mGy.cm COMPARISON: 07/17/2006 No acute intracranial hemorrhage, midline shift or mass effect. Mild atrophy and mild chronic microvascular ischemic disease. No prior large territory infarcts. Ventricles: Ventricles are mildly dilated. Temporal lobes are also prominent. No transependymal flow of CSF. Third ventricle is also slightly prominent as is the fourth ventricle. Paranasal sinuses: As visualized are clear. Mastoid air cells: Well pneumatized. Calvarium and scalp: Skull is intact with no soft tissue edema or swelling. CT/CT head wo con* [id number] IMPRESSION: 1. No acute intracranial hemorrhage or edema. 2. Mild atrophy and mild chronic ischemic disease. 3. Mild diffuse ventriculomegaly is new since 2006. Out of proportion to the a mount of atrophy. Consider mild early changes related to normal pressure hydroc ephalus as a possible etiology.
--- NOTE | 2019-11-05 10:18 | ECG_ITS ---
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 Measurements Intervals [place] Rate: 76 P: 86 MI: 160 QRS: 32 QRSD: 97 T: 57 QT: 390 QTc: 441 Interpretive Statements SINUS RHYTHM LOW QRS VOLTAGE IN EXTREMITY LEADS [QRS DEFLECTION < 0.5 mV IN LIMB LEADS] Compared to ECG 11/05/2019 09:07:59 Low QRS voltage now present Electronically Signed On 11-05-2019 17:18:51 CDT by Ange Bernal M.D. [email or web address] [email or web address].[email or web address]/store/[id number]
--- NOTE | 2019-11-05 10:19 | PM.PN ---
Subjective Subjective: Interval history: Patient is seen in the ICU after surgical procedure, is having a clear liquid diet, eating breakfast, he is quite depressed about his fracture, he tells me that he has had one heart attack, one stent placement, has had multiple strokes in the past, states that he had but I presume is a syncopal episode In regards to syncopal episode, patient tells me that last night, he got up to use the bathroom, he saw the hallway light, was walking towards the bathroom, and he just blacked out, He remembers he was on the floor, he hollered for his family numbers, his son found him, currently complaining of left facial numbness, no other focal neurologic deficits, no blurring of his vision, no loss of strength, currently sitting up in a chair, working with observational therapy Vitals/I&O/Wt Last Vital Signs Temp 98.3 F 11/05/19 08:24 Pulse 81 11/05/19 08:24 Resp 17 11/05/19 09:50 BP 126/53 11/05/19 08:24 Pulse Ox 99 11/05/19 09:50 11/04/19 11/05/19 11/05/19 22:59 06:59 14:59 Intake Total 2300 / 2300 Output Total 270 / 270 125 / 125 Balance 2029 -125 / -125 Weight last 48 hrs Weight 68.946 kg Physical Exam Const: COMMON NORMALS: no acute distress and patient oriented x3 HENMT: COMMON NORMALS: normocephalic HEAD & SCALP: normocephalic Neck/C-Spine: COMMON NORMALS: no JVD Resp: COMMON NORMALS: normal respiratory effort, No retractions, No use of accessory muscles and clear to auscultation bilaterally AUSCULTATION: clear to auscultation bilaterally Cardio: COMMON NORMALS: no JVD, regular rate, regular rhythm, S1 normal heart sound present and S2 normal heart sound present RATE: regular rate RHYTHM: regular rhythm HEART SOUNDS: S1 normal heart sound present and S2 normal heart sound present GI: COMMON NORMALS: Normal to inspection, nondistended, normoactive bowel sounds present, Soft to palpation, non-tender, No hepatosplenomegaly present, no masses and no bruits PALPATION: Yes Soft to palpation and Yes No hepatosplenomegaly present Extremity: COMMON NORMALS: capillary refill normal, no clubbing, cyanosis or edema, no calf tenderness and no pedal edema Neuro: COMMON NORMALS: patient oriented x3 Psych: COMMON NORMALS: mental status grossly normal Data : 11/04/19 00:30 11/04/19 00:30 A&P Assessment and plan (1) CVA (cerebral vascular accident): -Has a history of 3 CVAs in the past -Current syncopal episode -Having left facial numbness currently, no other focal neurologic deficits -Found to have atrial fibrillation in the OR, converted to normal sinus rhythm with labetalol -Given patient's fall, syncope, left facial numbness, history of CVAs, history of diabetes, hypertension highly suspicious of paroxysmal atrial fibrillation, CVA associated Plan: -Neuro checks -Continue IV fluids at 100 cc an hour -CT head -CTA of head and neck -Cardiac echo -He is on aspirin, statin -We will continue to monitor Status: Acute (2) Paroxysmal A-fib: -Seems like paroxysmal atrial fibrillation has been somewhat of a chronic issue for him given his recurrent CVAs, chest symptomatology -Continue telemetry monitoring -Currently in the right now normal sinus rhythm -We will troponins, cardiac echo, TSH, CTA of head and neck -will decide if he needs to be on anticoagulation -Will likely need event monitor on discharge Status: Acute (3) Fall at home: No loss of consciousness. Patient has had recurrent episodes of falling and near syncope. Sounds like he may have some orthostasis as well as a contributing factor of neuropathy that has worsened over time. No preceding symptoms prior to this episode. Status: Acute Qualifiers: Encounter type: initial encounter Qualified Code(s): W19.XXXA - Unspecified fall, initial encounter; Y92.009 - Unspecified place in unspecified non-institutional (private) residence as the place of occurrence of the external cause (4) Open bimalleolar fracture of right ankle: Status: Acute Qualifiers: Encounter type: initial encounter Open fracture type: open type I or II Qualified Code(s): S82.841B - Displaced bimalleolar fracture of right lower leg, initial encounter for open fracture type I or II (5) Transient atrial fibrillation: Noted in the immediate perioperative timeframe, converted to sinus rhythm after some labetalol. Patient denies a history of this abnormal rhythm. It could be a contributor to the episodes of syncope that he has. Status: Acute (6) ASHD (arteriosclerotic heart disease): Status: Chronic (7) Diabetes: -A1c 13.2 -Takes Levemir 50 to 60 units in the morning, 80 units at night -Patient tells me that he has not been using Levemir because he feels that he breaks out an allergic reaction secondary to it -Switch to Lantus 30 units in the morning, 70 units at night, sliding scale -We will monitor blood sugars Status: Chronic Qualifiers: Diabetes mellitus type: type 2 Diabetes mellitus fdc insulin use: with long term care pharmacist use Diabetes mellitus complication status: with kidney complications Diabetes mellitus complication detail: with chronic kidney disease Chronic kidney disease stage: stage 3 (moderate) Qualified Code(s): E11.22 - Type 2 diabetes mellitus with diabetic chronic kidney disease; N18.3 - Chronic kidney disease, stage 3 (moderate); Z79.4 - longterm (current) use of insulin (8) Polyneuropathy: Status: Chronic (9) RLS (restless legs syndrome): Status: Chronic Additional A&P Information Inpatient admission Postoperative management with pain control, recommended antibiotics and initiation of DVT prophylaxis Insulin therapy for diabetes Need to fully clarify home medications I have continued aspirin, statin, losartan Recheck EKG, telemetry monitoring Insulin therapy for diabetes Continued Lyrica, levothyroxine; agree with continuation of citalopram and Aricept Have held on the Linzess currently but will add stool softeners Continue PPI Address other medicines once we get the clarification needed Currently he is in sinus rhythm Supportive care otherwise Of note patient's has stage IV cancer and this is a concerning factor for Mr. Baumann understandably Full code Lovenox for DVT prophylaxis Attestations Medical Necessity Statement*: requires hospitalization for paroxysmal A. fib, possible stroke, fracture Coding Level of Care Code Acute Auto Porter for [facility] Diagnoses CVA (cerebral vascular accident) I63.9 Paroxysmal A-fib I48.0 Fall at home W19.XXXA; Y92.009 Encounter type: initial encounter Open bimalleolar fracture of right ankle S82.841B Encounter type: initial encounter Open fracture type: open type I or II Transient atrial fibrillation I48.91 ASHD (arteriosclerotic heart disease) I25.10 Diabetes E11.22; N18.3; Z79.4 Diabetes mellitus type: type 2 Diabetes mellitus long term care pharmacist insulin use: with fdc use Diabetes mellitus complication status: with kidney complications Diabetes mellitus complication detail: with chronic kidney disease Chronic kidney disease stage: stage 3 (moderate) Polyneuropathy G62.9 RLS (restless legs syndrome) G25.81
--- NOTE | 2019-11-05 10:32 | CT_ITS ---
WS: [id number] CT ANGIOGRAM CEREBRAL AND CAROTID ARTERIES HISTORY: Evaluate for stroke TECHNIQUE: CT angiogram is performed of the carotid and cerebral arteries. During arterial injection imaging is obtained from the skull vertex to the aortic arch in 1.25 mm imaging. Coronal and sagittal reformats are submitted. Additional multi planar reformats of the carotid and cerebral arteries are submitted, MIP imaging also reviewed. NASCET criteria utilized. All CT scans at [facility] use at least one of these dose optimization techniques: automated exposure control; mA and/or kV ad justment per patient size (includes targeted exams where dose is matched to clinical indication); or iterative reconstruction. CONTRAST: Visipaque 320; 95 mL IV. DLP: 1378.74 mGy.cm COMPARISON: None available. Carotid Angiogram: Right carotid: Common carotid artery: Arises normally from the innominate artery. No significant plaque or stenosis. Internal carotid artery: Large amount of calcified plaque at the carotid bifurcation and intimal thic kening. Bifurcation is patent with no significant stenosis. External carotid artery: Patent. Left carotid: Common carotid artery: Arises normally from the aorta. No significant plaque or stenosis. Internal carotid artery: Intimal thickening but no stenosis. External carotid artery: Patent. Right vertebral artery: Minimal scattered plaque distally. No occlusions. Left vertebral artery: Minimal scattered plaque distally with no occlusion. Subclavian arteries: No stenosis or significant abnormality. Upper thorax: Normal. Thyroid gland: Normal. Osseous structures: Increase in cervical lordosis. Osteopenia. CEREBRAL ANGIOGRAM: Intracranial vertebral arteries: Calcified plaque and intimal thickening LEFT vertebral artery at the level of the foramen magnum with stenosis approximately 50%. Distally normal caliber. Basilar artery: No significant stenosis or occlusion. No aneurysm. Intracranial Internal carotid arteries: Moderate atherosclerotic plaque through the petrous ridges bi laterally. There is heavy calcified plaque which is circumferential through the cavernous sinuses and supraclinoid. There is significant stenosis bilaterally proximal. Probably greater on the RIGHT. Richelle r occlusion in the RIGHT supraclinoid. Middle cerebral arteries: Small caliber RIGHT M1 segment. Could be congenital or due to atherosclerot ic disease. M2 segment is patent. No aneurysms. Anterior cerebral arteries and ACOM: Normal. Posterior cerebral arteries and PCOM's: Normal. Dural venous sinuses are normally enhancing. Mastoid air cells: Normal. Paranasal sinuses: Normal. Calvarium: Normal. CT/CT angio headneck* [id number] IMPRESSION: 1. No significant extracranial carotid artery stenosis. Less than 50% stenosis with mild plaque. 2. Severe high-grade stenoses bilaterally in the cavernous and supraclinoid ca rotid arteries. Greatest stenosis on the RIGHT. Probably greater than 80%. 3. Moderate stenosis RIGHT M1 segment. May be congenital or due to atheroscler otic disease.
[2019-11-05 11:21] LABS: Glucose Point of Care 424 mg/dL (70-110); Glucose Point of Care 451 mg/dL (70-110)
[2019-11-05] MEDS: iodixanol 320 mg/mL 100mL Btl IV (12:20)
--- NOTE | 2019-11-05 14:18 | ECG_ITS ---
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 Measurements Intervals [place] Rate: 85 P: 85 FL: 162 QRS: -2 QRSD: 101 T: 31 QT: 307 QTc: 366 Interpretive Statements SINUS RHYTHM NONSPECIFIC T-WAVE ABNORMALITY Compared to ECG 11/05/2019 10:53:38 T-wave abnormality now present Electronically Signed On 11-05-2019 17:17:23 CDT by Ange Bernal M.D. [id number]
[2019-11-05 14:46] LABS: Troponin 5 6HR 98.38 ng/L (0-15); Troponin 5 6HR Delta 6.38 ng/L (0-12)
[2019-11-05] MEDS: duloxetine 60 mg Capsule PO (14:46)
[2019-11-05] MEDS: cholecalciferol (vitamin D3) 1,000 unit Tablet 1000 UNIT PO (14:46)
[2019-11-05] MEDS: losartan 50 mg Tablet PO (14:47)
[2019-11-05] MEDS: aspirin 325 mg EC Tablet PO (14:47)
[2019-11-05] MEDS: calcium carbonate 500 mg Chew Tablet PO (14:47)
[2019-11-05] MEDS: pantoprazole DR 40 mg Tablet PO (14:47)
[2019-11-05] MEDS: citalopram 20 mg Tablet 10 MG PO (14:47)
[2019-11-05] MEDS: levothyroxine 25 mcg Tablet PO (14:47)
[2019-11-05 16:56] LABS: Glucose Point of Care 471 mg/dL (70-110)
[2019-11-05] MEDS: TRAMadol 50 mg Tablet PO (17:06)
[2019-11-05] MEDS: enoxaparin 40 mg/0.4 mL Syringe SUBCUT (17:15)
--- NOTE | 2019-11-05 18:15 | PC.NURSE ---
Patient arrived on unit.
[2019-11-05] MEDS: ALPRAZolam 0.25 mg Tablet PO (18:25)
[2019-11-05] MEDS: pregabalin 50 mg Capsule PO (18:25)
[2019-11-05] MEDS: sennosides-docusate Tablet 2 TAB PO (18:25)
[2019-11-05] MEDS: iron polysaccharide complex 150 mg Capsule PO (18:26)
--- NOTE | 2019-11-05 18:30 | PC.NURSE ---
Call placed to Dr. Guan regarding patient blood sugar of 471.
[2019-11-05 18:59] LABS: Troponin T (5th) Once 80 ng/L (0-15)
--- NOTE | 2019-11-05 19:17 | PM.PN ---
Subjective Subjective: Interval history: 69 yr old white male who had surgery earlier this morning for an open right bimalleolar ankle fracture. Pain down from 8/10 to 510. Patient transferred to ICU due to Afib with RVR noted in OR. He spontaneously converted to sinus rhythm during surgery Vitals/I&O/Wt Last Vital Signs Temp 97.8 F 11/05/19 15:00 Pulse 89 11/05/19 17:00 Resp 20 H 11/05/19 17:05 BP 162/78 11/05/19 17:00 Pulse Ox 100 11/05/19 17:00 11/05/19 11/05/19 11/05/19 06:59 14:59 22:59 Intake Total 2300 / 2300 236 / 236 500 / 736 Output Total 270 / 270 350 / 350 1120 / 1470 Balance 2029 / 2029 -114 / -114 -620 / -734 Weight last 48 hrs Weight 152 lb Physical Exam Narrative: EXAM NARRATIVE: 69 y/o white male who appears older than his stated age. In no acute distress. 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 Data : 11/06/19 03:22 11/06/19 03:22 A&P Assessment and plan (1) Open bimalleolar fracture of right ankle: NWB right ankle discharge planning to SNF On IV ancef cultures pending from surgery from open fracture site Status: Acute Qualifiers: Encounter type: initial encounter Open fracture type: open type I or II Qualified Code(s): S82.841B - Displaced bimalleolar fracture of right lower leg, initial encounter for open fracture type I or II (2) Paroxysmal A-fib: Status: Acute (3) Diabetes: Status: Chronic Qualifiers: Chronic kidney disease stage: stage 3 (moderate) Diabetes mellitus complication detail: with chronic kidney disease Diabetes mellitus complication status: with kidney complications Diabetes mellitus nursing home insulin use: with nursing home use Diabetes mellitus type: type 2 Qualified Code(s): E11.22 - Type 2 diabetes mellitus with diabetic chronic kidney disease; N18.3 - Chronic kidney disease, stage 3 (moderate); 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 (4) Fall at home: Status: Acute Qualifiers: Encounter type: initial encounter Qualified Code(s): W19.XXXA - Unspecified fall, initial encounter; Y92.009 - Unspecified place in unspecified non-institutional (private) residence as the place of occurrence of the external cause Attestations Medical Necessity Statement*: Patient requires continued inpatient level care for post op care following surgery for treatment of open right ankle fracture Time Spent in Patient Care: less than 15 minutes Coding Level of Care Code 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 [facility] Diagnoses Open bimalleolar fracture of right ankle S82.841B Encounter type: initial encounter Open fracture type: open type I or II Paroxysmal A-fib I48.0 Diabetes E11.22; N18.3; Z79.4 Chronic kidney disease stage: stage 3 (moderate) Diabetes mellitus complication detail: with chronic kidney disease Diabetes mellitus complication status: with kidney complications Diabetes 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
--- NOTE | 2019-11-05 19:49 | PC.NURSE ---
Pt resting in bed. Rates pain 3/10 on numeric scale. States pain is chronic and he is always in pain. On 3L NC, but reports that he wears that at home. Pt drowsy. RLE cast in place. Toes pink, dry. No odor from cast. Right politeal pulse palpable. Noted to have multiple small abrasions on BLE. Assisted with urinal and bedpan. No further needs at this time.
[2019-11-05 20:44] LABS: Glucose Point of Care 368 mg/dL (70-110)
[2019-11-05] MEDS: atorvastatin 40 mg Tablet 20 MG PO (21:24)
[2019-11-05] MEDS: insulin glargine 100 units/1 mL 70 UNIT SUBCUT (21:26)
[2019-11-05] MEDS: donepezil 5 MG Tablet 10 MG PO (21:33)
[2019-11-06] VITALS (15 sets, daily range): BP systolic 125–161; BP diastolic 66–78; PULSE 76–85; RESP 12–20; TEMP 36.7–37.1; O2SAT 94–100
[2019-11-06] MEDS: morphine IR 15 mg Tablet PO ×3 (03:36→20:58)
[2019-11-06] MEDS: TRAMadol 50 mg Tablet PO ×3 (03:37→20:56)
[2019-11-06 03:53] LABS: Basophils % 0.2 %; Eosinophils % 0.5 %; Hematocrit 30.3 % (42.0-52.0); Hemoglobin 10.3 g/dL (11.7-16.6); Lymphocytes # 1.2 10^3/uL (0.8-4.8); Lymphocytes % 14.7 %; Mean Corpuscular Hemoglobin 31.2 pg (28.0-34.0); Mean Corpuscular Volume 91.8 fL (80-94); Mean Platelet Volume 9.8 fL (7.4-10.4); Monocytes # 0.8 10^3/uL (0.2-0.9); Monocytes % 9.5 %; Neutrophils # 6.05 10^3/uL (1.8-7.7); Neutrophils % 74.9 %; Nucleated Red Blood Cells % 0 %; Platelet Count 163 10^3/cmm (130-400); Red Cell Distribution Width 14.4 % (12.1-15.1); White Blood Count 8.1 10^3/uL (4.0-10.0)
[2019-11-06 04:14] LABS: Magnesium 1.4 mg/dL (1.7-2.3); Phosphorus 2.9 mg/dL (2.5-4.5)
[2019-11-06 04:23] LABS: Anion Gap 9.1 (5-19); Blood Urea Nitrogen 14 mg/dL (8-23); Carbon Dioxide 33 mmol/L (22-29); Chloride 100 mmol/L (98-107); Glomerular Filtration Rate 74.3 mL/min (90-130); Glucose 201 mg/dL (65-115); Osmolality Calculated 290 mOsm/kg (285-295); Potassium 3.1 mmol/L (3.5-5.1); Sodium 139 mmol/L (136-145); Troponin T (5th) Once 63 ng/L (0-15)
[2019-11-06] MEDS: HYDROmorphone 1 mg/mL INJ 1 mL IVP (06:22)
[2019-11-06 06:53] LABS: Glucose Point of Care 208 mg/dL (70-110)
--- NOTE | 2019-11-06 07:28 | P.PN_ITS ---
Subjective Subjective: Interval history: 69 y/o white male pod # s/p orif of Grade II open right bimalleolar ankle fracture with sprian of distal tibiofibular joint. Complaint of right ankle throbbing. Pain control is an issue. Patient takes oral morphine and tramadol on outpatient basis Chronically prior to this admission. Vitals/I&O/Wt Last Vital Signs Temp 98.4 F 11/06/19 03:00 Pulse 77 11/06/19 06:27 Resp 15 11/06/19 06:22 BP 161/78 11/06/19 03:00 Pulse Ox 100 11/06/19 06:27 11/05/19 11/06/19 11/06/19 22:59 06:59 14:59 Intake Total 1953.333 / 2189.333 350 / 2539.333 Output Total 1220 / 1570 1050 / 2620 Balance 733.333 / 619.333 -700 / -80.667 Weight last 48 hrs Weight 167 lb Weight 152 lb Physical Exam Narrative: EXAM NARRATIVE: 69-year-old white male who appears older than stated age. In no acute distress but offering complaints of right ankle throbbing. Is able to speak in full sentences. He is alert and cooperative. Vital signs are stable is afebrile Lungs are clear to auscultation heart is regular rate and rhythm abdomen soft nontender examination of the right lower extremity shows a splint to be clean dry and intact and toes with normal capillary refill and no cyanosis. Laboratory studies today white blood cell count was normal at 8.1 hemoglobin hematocrit 10.3 and 30.3 respectively. No data yet available for intraoperative cultures taken from the open wound on the medial aspect of his right ankle. Data : 11/06/19 03:22 11/06/19 03:22 A&P Assessment and plan (1) Open bimalleolar fracture of right ankle: Pain control VTE prophylaxis using Lovenox Transition to oral extended prophylaxis using cefuroxime 500 mg by mouth twice a day and Bactrim double strength one by mouth twice a day for 2 weeks. Discharge prescriptions have been written for this woman the patient is deemed ready for discharge. I have ordered a removable short leg posterior splint immobilized the patient still not gone to in equinus position. A well-padded splint allow us to change his dressing so we can monitor the healing of his wound. I plan to see the patient the office roughly 2 weeks from the date of surgery. I have tentatively placed him on my orthopedic clinic schedule for November 17. Time is in the discharge note documentation. Recommendation to skilled facility transfer when medically stable and when an accepting facility is available. His follow-up visit will need to be in the office and will not be able to be performed on a telehealth basis. Status: Acute Qualifiers: Encounter type: initial encounter Open fracture type: open type I or II Qualified Code(s): S82.841B - Displaced bimalleolar fracture of right lower leg, initial encounter for open fracture type I or II (2) Fall at home: Status: Acute Qualifiers: Encounter type: initial encounter Qualified Code(s): W19.XXXA - Unspecified fall, initial encounter; Y92.009 - Unspecified place in unspecified non-institutional (private) residence as the place of occurrence of the external cause (3) Diabetes: Status: Chronic Qualifiers: Chronic kidney disease stage: stage 3 (moderate) Diabetes mellitus complication detail: with chronic kidney disease Diabetes mellitus complication status: with kidney complications Diabetes mellitus termite control representative insulin use: with termite control representative use Diabetes mellitus type: type 2 Qualified Code(s): E11.22 - Type 2 diabetes mellitus with diabetic chronic kidney disease; N18.3 - Chronic kidney disease, stage 3 (moderate); Z79.4 - vermin exterminator (current) use of insulin (4) Polyneuropathy: Status: Chronic Attestations Medical Necessity Statement*: Patient is unsafe to go home as she has not been able to perform nonweightbearing on his right lower extremity. He requires transfer to a fpc facility. He requires continued efforts at pain control. Coding Level of Care Code Acute Dental Scheduler for [facility] Diagnoses Open bimalleolar fracture of right ankle S82.841B Encounter type: initial encounter Open fracture type: open type I or II Fall at home W19.XXXA; Y92.009 Encounter type: initial encounter Diabetes E11.22; N18.3; Z79.4 Chronic kidney disease stage: stage 3 (moderate) Diabetes mellitus complication detail: with chronic kidney disease Diabetes mellitus complication status: with kidney complications Diabetes mellitus fpc insulin use: with termite control representative use Diabetes mellitus type: type 2 Polyneuropathy G62.9
[2019-11-06] MEDS: aspirin 325 mg EC Tablet PO (08:41)
[2019-11-06] MEDS: citalopram 20 mg Tablet 10 MG PO (08:41)
[2019-11-06] MEDS: sennosides-docusate Tablet 2 TAB PO ×2 (08:41→17:45)
[2019-11-06] MEDS: ALPRAZolam 0.25 mg Tablet PO ×2 (08:41→17:46)
[2019-11-06] MEDS: calcium carbonate 500 mg Chew Tablet PO ×2 (08:41→17:49)
[2019-11-06] MEDS: losartan 50 mg Tablet PO (08:42)
[2019-11-06] MEDS: cholecalciferol (vitamin D3) 1,000 unit Tablet 1000 UNIT PO (08:42)
[2019-11-06] MEDS: levothyroxine 25 mcg Tablet PO (08:42)
[2019-11-06] MEDS: pantoprazole DR 40 mg Tablet PO (08:42)
[2019-11-06] MEDS: duloxetine 60 mg Capsule PO (08:42)
[2019-11-06] MEDS: pregabalin 50 mg Capsule PO ×2 (08:42→17:46)
[2019-11-06] MEDS: iron polysaccharide complex 150 mg Capsule PO ×2 (08:44→17:50)
[2019-11-06] MEDS: sodium chloride 0.9% 1,000 ML 100 ML IV (08:44)
[2019-11-06] MEDS: insulin glargine 100 units/1 mL 30 UNIT SUBCUT (09:02)
--- NOTE | 2019-11-06 09:15 | PC.CHAP ---
Pastoral Care Encounter/Spiritual Assessment Type of Contact [] Declined lining sewer visit [] Patient/Family/Request visit [] Outpatient visit [] Follow-up visit [] Physician referral [] Code/Alert [x] Routine visit [] Staff referral [] Actively dying [] Patient sleeping [] Family support [] [] Out of room [] Palliative care [] [] Receiving care in room [] Pre-surgical visit [] Trauma [] Long length of stay [] ICU visit [] Other: Relational/Emotional Strength [] Patient feels connected with others/family/visitors/staff [] Distress [] Loneliness/isolation [] Abandonment Spirituality of Patient [x] Person of Helene [] Attends Amish of their Helene [x] Believes in Prayer [] Reads Bible or Advent materials [] There are Spiritual issues to be addressed House Officer Interventions [x] Prayer [x] Active listening [x] Non-anxious presence [x] Spiritual/emotional support [] Crisis/trauma care [] Spiritual counseling [] Bereavement support [] Provided bereavement packet [] Provided Bible/devotional materials [] Provided toy/stuffed animal, coloring book to patient or family member [] Provided Communion [] Anointing/[place] [] Salvation [x] Completed spiritual assessment [] Other: Impact on Illness or Injury [] Angry [] Fearful [] Anxious [] Often cries [] Exhaustion [] Unable to work [] Unable to attend yazidi [] Unable to walk/stand [] Unable to read [] Unable to drive [] Unable to eat/drink [] Unable to sleep [] Unable to be with family [] Patient intubated [] Other: Summary delightful patient. Resting well. has a bed ridden at home. Time spent with patient 15 min
[2019-11-06] MEDS: cefUROXime 250 mg Tablet 500 MG PO ×2 (11:21→17:45)
[2019-11-06] MEDS: potassium chloride ER 10 mEq Tablet 40 MEQ PO (11:21)
[2019-11-06] MEDS: metoprolol tartrate 25 mg Tablet 12.5 MG PO ×2 (11:23→17:49)
[2019-11-06] MEDS: sulfamethoxazole-trimeth DS 160-800 mg Tablet 1 TAB PO ×2 (11:25→17:48)
[2019-11-06 11:36] LABS: Glucose Point of Care 452 mg/dL (70-110)
--- NOTE | 2019-11-06 12:47 | PM.PN ---
Subjective Subjective: Interval history: This morning patient sitting in bed, place, no chest pain, no palpitations, patient states that he is agreeable to go to a half-way, for short-term rehab, either that he is doing well Vitals/I&O/Wt Last Vital Signs Temp 98.2 F 11/06/19 11:00 Pulse 76 11/06/19 11:00 Resp 20 H 11/06/19 11:22 BP 150/73 11/06/19 11:00 Pulse Ox 100 11/06/19 11:00 11/05/19 11/06/19 11/06/19 22:59 06:59 14:59 Intake Total 1953.333 / 2189.333 350 / 2539.333 1220 / 1220 Output Total 1220 / 1570 1050 / 2620 480 / 480 Balance 733.333 / 619.333 -700 / -80.667 740 / 740 Weight last 48 hrs Weight 75.75 kg Weight 68.946 kg Physical Exam Const: COMMON NORMALS: no acute distress and patient oriented x3 HENMT: COMMON NORMALS: normocephalic HEAD & SCALP: normocephalic Neck/C-Spine: COMMON NORMALS: no JVD Resp: COMMON NORMALS: normal respiratory effort, No retractions, No use of accessory muscles and clear to auscultation bilaterally AUSCULTATION: clear to auscultation bilaterally Cardio: COMMON NORMALS: no JVD, regular rate, regular rhythm, S1 normal heart sound present and S2 normal heart sound present RATE: regular rate RHYTHM: regular rhythm HEART SOUNDS: S1 normal heart sound present and S2 normal heart sound present GI: COMMON NORMALS: Normal to inspection, nondistended, normoactive bowel sounds present, Soft to palpation, non-tender, No hepatosplenomegaly present, no masses and no bruits PALPATION: Yes Soft to palpation and Yes No hepatosplenomegaly present Extremity: COMMON NORMALS: capillary refill normal, no clubbing, cyanosis or edema, no calf tenderness and no pedal edema Neuro: COMMON NORMALS: patient oriented x3 Psych: COMMON NORMALS: mental status grossly normal Data : 11/06/19 03:22 11/06/19 03:22 Micro: Microbiology 11/05/19 04:00 Anaerobic Culture - Preliminary Ankle - #1 11/05/19 04:00 Wound Culture - Preliminary Ankle - #2 A&P Assessment and plan (1) CVA (cerebral vascular accident): -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 No significant extracranial carotid artery stenosis. Less than 50% stenosis with mild plaque. 2. Severe high-grade stenoses bilaterally in the cavernous and supraclinoid carotid arteries. Greatest stenosis on the RIGHT. Probably greater than 80%. 3. Moderate stenosis RIGHT M1 segment. May be congenital or due to atherosclerotic disease. CT HEAD: 1. No acute intracranial hemorrhage or edema. 2. Mild atrophy and mild chronic ischemic disease. 3. Mild diffuse ventriculomegaly is new since 2006. Out of proportion to the amount of atrophy. Consider mild early changes related to normal pressure hydrocephalus as a possible etiology. -Given atrial fibrillation, history of syncope in the past, will treat as if he has had a CVA Plan: -Continue aspirin statin -Continue metoprolol, losartan -We will continue to monitor -PT OT Status: Acute (2) Paroxysmal A-fib: -Seems like paroxysmal atrial fibrillation has been somewhat of a chronic issue for him given his recurrent CVAs, chest symptomatology -Converted to normal sinus rhythm after labetalol in the OR -Continue telemetry monitoring -Currently in the right now normal sinus rhythm -Will likely need event monitor on discharge -Continue Medrol 12.5 twice daily Status: Acute (3) NSTEMI (non-ST elevated myocardial infarction): -6-hour troponin 98.3 8, delta 6.38, troponin this morning 63 -EKG shows no acute ST-T wave changes -No complaints of chest pain -Echocardiogram shows an ejection fraction 55%, grade 1 out of 4 diastolic dysfunction, mild aortic valve stenosis -Continue aspirin, statin, beta-kam -Likely type II NSTEMI, from paroxysmal A. fib, but cannot rule out cardiac etiology -Patient will need an outpatient stress test -We will have patient follow-up with cardiology Status: Acute (4) Fall at home: No loss of consciousness. Patient has had recurrent episodes of falling and near syncope. Sounds like he may have some orthostasis as well as a contributing factor of neuropathy that has worsened over time. No preceding symptoms prior to this episode. Status: Acute Qualifiers: Encounter type: initial encounter Qualified Code(s): W19.XXXA - Unspecified fall, initial encounter; Y92.009 - Unspecified place in unspecified non-institutional (private) residence as the place of occurrence of the external cause (5) Open bimalleolar fracture of right ankle: Status: Acute Qualifiers: Encounter type: initial encounter Open fracture type: open type I or II Qualified Code(s): S82.841B - Displaced bimalleolar fracture of right lower leg, initial encounter for open fracture type I or II (6) Transient atrial fibrillation: Noted in the immediate perioperative timeframe, converted to sinus rhythm after some labetalol. Patient denies a history of this abnormal rhythm. It could be a contributor to the episodes of syncope that he has. Status: Acute (7) ASHD (arteriosclerotic heart disease): Status: Chronic (8) Diabetes: -A1c 13.2 Status: Chronic Qualifiers: Diabetes mellitus type: type 2 Diabetes mellitus chcf insulin use: with superintendent container terminal use Diabetes mellitus complication status: with kidney complications Diabetes mellitus complication detail: with chronic kidney disease Chronic kidney disease stage: stage 3 (moderate) Qualified Code(s): E11.22 - Type 2 diabetes mellitus with diabetic chronic kidney disease; N18.3 - Chronic kidney disease, stage 3 (moderate); Z79.4 - terminal press operator (current) use of insulin (9) Polyneuropathy: Status: Chronic (10) RLS (restless legs syndrome): Status: Chronic Additional A&P Information Inpatient admission Postoperative management with pain control, recommended antibiotics and initiation of DVT prophylaxis Insulin therapy for diabetes Continued Lyrica, levothyroxine; agree with continuation of citalopram and Aricept Have held on the Linzess currently but will add stool softeners Continue PPI Currently he is in sinus rhythm Supportive care otherwise Of note patient's has stage IV cancer and this is a concerning factor for Mr. Baumann understandably Awaiting half-way placement Full code Lovenox for DVT prophylaxis Attestations Medical Necessity Statement*: Cards continue hospitalization for fracture, strokelike symptom,nstemi,, atrial fibrillation Coding Level of Care Code Acute Wildfire Prevention Specialist for [facility] Diagnoses CVA (cerebral vascular accident) I63.9 Paroxysmal A-fib I48.0 NSTEMI (non-ST elevated myocardial infarction) I21.4 Fall at home W19.XXXA; Y92.009 Encounter type: initial encounter Open bimalleolar fracture of right ankle S82.841B Encounter type: initial encounter Open fracture type: open type I or II Transient atrial fibrillation I48.91 ASHD (arteriosclerotic heart disease) I25.10 Diabetes E11.22; N18.3; Z79.4 Diabetes mellitus type: type 2 Diabetes mellitus chcf insulin use: with chcf use Diabetes mellitus complication status: with kidney complications Diabetes mellitus complication detail: with chronic kidney disease Chronic kidney disease stage: stage 3 (moderate) Polyneuropathy G62.9 RLS (restless legs syndrome) G25.81
--- NOTE | 2019-11-06 12:59 | PC.RESP ---
Pulmonary Rehab information sent to patient. 1963
--- NOTE | 2019-11-06 15:00 | PC.NURSE ---
Patient incontinent of urine. Patient bathed & bed linens changed.
[2019-11-06] MEDS: enoxaparin 40 mg/0.4 mL Syringe SUBCUT (17:45)
[2019-11-06] MEDS: magnesium oxide 400 mg tablet PO (17:50)
[2019-11-06] MEDS: atorvastatin 40 mg Tablet 20 MG PO (20:54)
[2019-11-06] MEDS: donepezil 5 MG Tablet 10 MG PO (20:55)
[2019-11-06] MEDS: insulin glargine 100 units/1 mL 70 UNIT SUBCUT (21:04)
[2019-11-06 21:10] LABS: Glucose Point of Care 109 mg/dL (70-110)
[2019-11-07] VITALS (13 sets, daily range): BP systolic 126–160; BP diastolic 61–78; PULSE 70–82; RESP 10–16; TEMP 36.4–36.6; O2SAT 95–100
[2019-11-07] MEDS: TRAMadol 50 mg Tablet PO (02:57)
[2019-11-07] MEDS: morphine IR 15 mg Tablet PO ×4 (02:58→20:29)
[2019-11-07 04:01] LABS: Basophils % 0.2 %; Eosinophils # 0.1 10^3/uL (0.0-0.8); Eosinophils % 2.1 %; Hematocrit 29.8 % (42.0-52.0); Hemoglobin 9.9 g/dL (11.7-16.6); Lymphocytes # 1.5 10^3/uL (0.8-4.8); Lymphocytes % 22.7 %; Mean Corpuscular HGB Conc 33.2 g/dL (30.0-36.0); Mean Corpuscular Hemoglobin 30.9 pg (28.0-34.0); Mean Corpuscular Volume 93.1 fL (80-94); Mean Platelet Volume 9.6 fL (7.4-10.4); Monocytes # 0.7 10^3/uL (0.2-0.9); Monocytes % 10.4 %; Neutrophils # 4.19 10^3/uL (1.8-7.7); Neutrophils % 64.3 %; Nucleated Red Blood Cells % 0 %; Platelet Count 137 10^3/cmm (130-400); Red Cell Distribution Width 14.3 % (12.1-15.1); White Blood Count 6.5 10^3/uL (4.0-10.0)
[2019-11-07 04:29] LABS: Magnesium 1.5 mg/dL (1.7-2.3); Phosphorus 2.7 mg/dL (2.5-4.5)
[2019-11-07 04:30] LABS: Anion Gap 7.5 (5-19); Blood Urea Nitrogen 14 mg/dL (8-23); Calcium 8.1 mg/dL (8.5-10.5); Carbon Dioxide 34 mmol/L (22-29); Chloride 103 mmol/L (98-107); Glomerular Filtration Rate 83.9 mL/min (90-130); Glucose 94 mg/dL (65-115); Osmolality Calculated 288 mOsm/kg (285-295); Potassium 3.5 mmol/L (3.5-5.1); Sodium 141 mmol/L (136-145)
[2019-11-07 06:45] LABS: Glucose Point of Care 123 mg/dL (70-110)
[2019-11-07] MEDS: insulin glargine 100 units/1 mL 30 UNIT SUBCUT (09:12)
[2019-11-07] MEDS: magnesium oxide 400 mg tablet PO (09:12)
[2019-11-07] MEDS: iron polysaccharide complex 150 mg Capsule PO ×2 (09:18→17:21)
[2019-11-07] MEDS: duloxetine 60 mg Capsule PO (09:18)
[2019-11-07] MEDS: citalopram 20 mg Tablet 10 MG PO (09:18)
[2019-11-07] MEDS: cefUROXime 250 mg Tablet 500 MG PO ×2 (09:18→17:21)
[2019-11-07] MEDS: potassium chloride ER 10 mEq Tablet 40 MEQ PO (09:18)
[2019-11-07] MEDS: cholecalciferol (vitamin D3) 1,000 unit Tablet 1000 UNIT PO (09:18)
[2019-11-07] MEDS: sulfamethoxazole-trimeth DS 160-800 mg Tablet 1 TAB PO ×2 (09:18→17:21)
[2019-11-07] MEDS: pregabalin 50 mg Capsule PO ×2 (09:19→17:21)
[2019-11-07] MEDS: losartan 50 mg Tablet PO (09:19)
[2019-11-07] MEDS: calcium carbonate 500 mg Chew Tablet PO ×2 (09:19→17:21)
[2019-11-07] MEDS: ALPRAZolam 0.25 mg Tablet PO ×2 (09:19→17:21)
[2019-11-07] MEDS: aspirin 325 mg EC Tablet PO (09:19)
[2019-11-07] MEDS: levothyroxine 25 mcg Tablet PO (09:19)
[2019-11-07] MEDS: metoprolol tartrate 25 mg Tablet 12.5 MG PO ×2 (09:19→17:21)
[2019-11-07] MEDS: pantoprazole DR 40 mg Tablet PO (09:19)
[2019-11-07] MEDS: sennosides-docusate Tablet 2 TAB PO ×2 (09:19→17:21)
--- NOTE | 2019-11-07 10:17 | P.PN_ITS ---
Subjective Subjective: Interval history: 69-year-old white male postoperative day 2 status post ORIF open right bimalleolar ankle fracture and ORIF of syndesmosis right ankle. Review of hospitalist note reviews patient experienced an NSTEMI this hospitalization. No evidence of acute CVA. No critical carotid stenosis. Patient agreeable to skilled facility placement. Vitals/I&O/Wt Last Vital Signs Temp 97.8 F 11/07/19 05:00 Pulse 79 11/07/19 07:34 Resp 14 11/07/19 09:17 BP 126/71 11/07/19 09:19 Pulse Ox 98 11/07/19 07:34 11/06/19 11/07/19 11/07/19 22:59 06:59 14:59 Intake Total 420 / 2120 700 / 2820 Output Total 720 / 1540 1100 / 2640 Balance -300 / 580 -400 / 180 Weight last 48 hrs Weight 167 lb Physical Exam Narrative: EXAM NARRATIVE: 69-year-old white male who appears older than stated age. Vital signs remain stable. He is afebrile. postoperative splint removed. incisions intact. no evidence of infection no fracture blebs about ankle. dressing changed white blood cell count normal at 6.5 Hemoglobin 9.9 Aerobic and anaerobic cultures obtained at time of surgery showed no growth to date Data : 11/08/19 03:08 11/08/19 03:08 Micro: Microbiology 11/05/19 04:00 Anaerobic Culture - Preliminary Ankle - #1 11/05/19 04:00 Wound Culture - Preliminary Ankle - #2 A&P Assessment and plan (1) Open bimalleolar fracture of right ankle: continue extended oral prophylaxis while inpatient and when discharged to skilled facility Continued nonweightbearing on postoperative right lower extremity May be discharged when felt medically stable and a shelter facility bed is available. The patient will require follow-up for wound healing while discharged. To be determined if this will be able to be done via telephone health or will require in office visits. ` Status: Acute Qualifiers: Encounter type: initial encounter Open fracture type: open type I or II Qualified Code(s): S82.841B - Displaced bimalleolar fracture of right lower leg, initial encounter for open fracture type I or II Attestations Medical Necessity Statement*: Patient requires continued inpatient level care until transfer to skilled facility can be arranged Time Spent in Patient Care: 16 - 35 minutes (>than 50% of time spent in counselling and/or direct pt care on unit) . Coding Level of Care Code Acute Frame And Scrap Crusher for [facility] Diagnoses Open bimalleolar fracture of right ankle S82.841B Encounter type: initial encounter Open fracture type: open type I or II
--- NOTE | 2019-11-07 11:04 | P.PN_ITS ---
Subjective Subjective: Interval history: This morning patient sitting in bed, enjoying breakfast, doing well, no fevers, no chills, no chest pain, no shortness of breath, is awaiting long term placement on Saturday, no atrial fibrillation events in the last 4 hours, requiring 2 L nasal cannula, states he uses up to 4 L at home Vitals/I&O/Wt Last Vital Signs Temp 97.9 F 11/07/19 10:45 Pulse 73 11/07/19 10:45 Resp 10 L 11/07/19 10:45 BP 129/61 11/07/19 10:45 Pulse Ox 98 11/07/19 10:45 11/06/19 11/07/19 11/07/19 22:59 06:59 14:59 Intake Total 420 / 2120 700 / 2820 Output Total 720 / 1540 1100 / 2640 Balance -300 / 580 -400 / 180 Weight last 48 hrs Weight 75.75 kg Physical Exam Const: COMMON NORMALS: no acute distress and patient oriented x3 HENMT: COMMON NORMALS: normocephalic HEAD & SCALP: normocephalic Neck/C-Spine: COMMON NORMALS: no JVD Resp: COMMON NORMALS: normal respiratory effort, No retractions, No use of accessory muscles and clear to auscultation bilaterally AUSCULTATION: clear to auscultation bilaterally Cardio: COMMON NORMALS: no JVD, regular rate, regular rhythm, S1 normal heart sound present and S2 normal heart sound present RATE: regular rate RHYTHM: regular rhythm HEART SOUNDS: S1 normal heart sound present and S2 normal heart sound present GI: COMMON NORMALS: Normal to inspection, nondistended, normoactive bowel sounds present, Soft to palpation, non-tender, No hepatosplenomegaly present, no masses and no bruits PALPATION: Yes Soft to palpation and Yes No hepatosplenomegaly present Extremity: COMMON NORMALS: capillary refill normal, no clubbing, cyanosis or edema, no calf tenderness and no pedal edema NARRATIVE EXTREMITY EXAM: Right lower extremity in a cast Neuro: COMMON NORMALS: patient oriented x3 Psych: COMMON NORMALS: mental status grossly normal Data : 11/07/19 03:50 11/07/19 03:50 Micro: Microbiology 11/05/19 04:00 Anaerobic Culture - Preliminary Ankle - #1 11/05/19 04:00 Wound Culture - Preliminary Ankle - #2 A&P Assessment and plan (1) CVA (cerebral vascular accident): -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 No significant extracranial carotid artery stenosis. Less than 50% stenosis with mild plaque. 2. Severe high-grade stenoses bilaterally in the cavernous and supraclinoid carotid arteries. Greatest stenosis on the RIGHT. Probably greater than 80%. 3. Moderate stenosis RIGHT M1 segment. May be congenital or due to atherosclerotic disease. CT HEAD: 1. No acute intracranial hemorrhage or edema. 2. Mild atrophy and mild chronic ischemic disease. 3. Mild diffuse ventriculomegaly is new since 2006. Out of proportion to the amount of atrophy. Consider mild early changes related to normal pressure hydrocephalus as a possible etiology. -Given atrial fibrillation, history of syncope in the past, will treat as if he has had a CVA -Currently no focal neurologic deficits Plan: -Continue aspirin statin -Continue metoprolol, losartan -We will continue to monitor -PT OT -Awaiting long term placement Status: Acute (2) Paroxysmal A-fib: -Seems like paroxysmal atrial fibrillation has been somewhat of a chronic issue for him given his recurrent CVAs, chest symptomatology -Converted to normal sinus rhythm after labetalol in the OR -Continue telemetry monitoring -Currently in the right now normal sinus rhythm -Will likely need event monitor on discharge -Continue Medrol 12.5 twice daily -No anticoagulation at this point given no recurrent atrial fibrillation events, this can be readdressed as outpatient Status: Acute (3) NSTEMI (non-ST elevated myocardial infarction): -6-hour troponin 98.3 8, delta 6.38, troponin this morning 63 -EKG shows no acute ST-T wave changes -No complaints of chest pain -Echocardiogram shows an ejection fraction 55%, grade 1 out of 4 diastolic dysfunction, mild aortic valve stenosis -Continue aspirin, statin, beta-kam -Likely type II NSTEMI, from paroxysmal A. fib, but cannot rule out cardiac e tiology -Patient will need an outpatient stress test -We will have patient follow-up with cardiology Status: Acute (4) Fall at home: No loss of consciousness. Patient has had recurrent episodes of falling and near syncope. Sounds like he may have some orthostasis as well as a contributing factor of neuropathy that has worsened over time. No preceding symptoms prior to this episode. Status: Acute Qualifiers: Encounter type: initial encounter Qualified Code(s): W19.XXXA - Unspecified fall, initial encounter; Y92.009 - Unspecified place in unspecified non-institutional (private) residence as the place of occurrence of the external cause (5) Open bimalleolar fracture of right ankle: Pain control, anticoagulation as per orthopedic team Patient will have PT OT as inpatient Hopefully discharge to long term on Saturday- Status: Acute Qualifiers: Encounter type: initial encounter Open fracture type: open type I or II Qualified Code(s): S82.841B - Displaced bimalleolar fracture of right lower leg, initial encounter for open fracture type I or II (6) ASHD (arteriosclerotic heart disease): Status: Chronic (7) Diabetes: -A1c 13.2 Status: Chronic Qualifiers: Diabetes mellitus type: type 2 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 mellitus 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 intermodal truck driver insulin use: with dedicated intermodal truck driver use Diabetes mellitus complication status: with kidney complications Diabetes mellitus complication detail: with chronic kidney disease Chronic kidney disease stage: stage 3 (moderate) Qualified Code(s): E11.22 - Type 2 diabetes mellitus with diabetic chronic kidney disease; N18.3 - Chronic kidney disease, stage 3 (moderate); Z79.4 - prison (current) use of insulin (8) Polyneuropathy: Status: Chronic (9) RLS (restless legs syndrome): Status: Chronic (10) COPD (chronic obstructive pulmonary disease): Continue home inhalers Status: Chronic (11) Anemia: -Hemoglobin down to 9.9 -No overt signs of bleeding -No hemodynamic compromise -No bloody or black stools -Continue Protonix 40 daily -Monitor hemoglobin closely -We will do iron studies stool for occult blood Status: Acute Additional A&P Information Inpatient admission Postoperative management with pain control, recommended antibiotics and initiation of DVT prophylaxis Insulin therapy for diabetes Continued Lyrica, levothyroxine; agree with continuation of citalopram and Aricept Have held on the Linzess currently but will add stool softeners Continue PPI Currently he is in sinus rhythm Supportive care otherwise Of note patient's has stage IV cancer and this is a concerning factor for Mr. Baumann understandably Awaiting long term placement Full code Lovenox for DVT prophylaxis Attestations Medical Necessity Statement*: Patient requires continued hospitalization after a fall, ankle fracture, stroke, transient atrial fibrillation, awaiting long term placement Coding Level of Care Code Acute Physician Compensation Analyst for [facility] Fwd Diagnoses CVA (cerebral vascular accident) I63.9 Paroxysmal A-fib I48.0 NSTEMI (non-ST elevated myocardial infarction) I21.4 Fall at home W19.XXXA; Y92.009 Encounter type: initial encounter Open bimalleolar fracture of right ankle S82.841B Encounter type: initial encounter Open fracture type: open type I or II ASHD (arteriosclerotic heart disease) I25.10 Diabetes E11.22; N18.3; Z79.4 Diabetes mellitus type: type 2 Diabetes mellitus dedicated intermodal truck driver insulin use: with shelter use Diabetes mellitus complication status: with kidney complications Diabetes mellitus complication detail: with chronic kidney disease Chronic kidney disease stage: stage 3 (moderate) Polyneuropathy G62.9 RLS (restless legs syndrome) G25.81 COPD (chronic obstructive pulmonary disease) J44.9 Anemia D64.9
[2019-11-07 11:33] LABS: Glucose Point of Care 154 mg/dL (70-110)
[2019-11-07 15:32] LABS: Ferritin 76 ng/mL (30-400); Iron 23 ug/dL (59-158); Percent Saturation 12.1 % (20-50); Total Iron Binding Capacity 189 mcg/dl; Unsaturated Iron Binding 166 ug/dL (112-347)
[2019-11-07 16:03] LABS: Glucose Point of Care 287 mg/dL (70-110)
[2019-11-07] MEDS: enoxaparin 40 mg/0.4 mL Syringe SUBCUT (17:22)
[2019-11-07] MEDS: atorvastatin 40 mg Tablet 20 MG PO (20:30)
[2019-11-07] MEDS: donepezil 5 MG Tablet 10 MG PO (20:30)
[2019-11-07] MEDS: insulin glargine 100 units/1 mL 70 UNIT SUBCUT (20:41)
[2019-11-07 20:50] LABS: Glucose Point of Care 242 mg/dL (70-110)
--- NOTE | 2019-11-07 22:02 | PC.NURSE ---
REPORT RECEIVED FROM OFF GOING NURSE. PT C/O PAIN IN RIGHT LEG AND HIP 12/06. PRN MORPHINE PO GIVEN FOR PAIN. WILL CONTINUE TO MONITOR.
[2019-11-08] VITALS (13 sets, daily range): BP systolic 136–162; BP diastolic 66–76; PULSE 70–81; RESP 10–18; TEMP 36.6–36.9; O2SAT 93–100
[2019-11-08] MEDS: morphine IR 15 mg Tablet PO ×5 (02:50→21:51)
--- NOTE | 2019-11-08 03:28 | PC.NURSE ---
PT AWOKE A COUPLE OF TIMES CONFUSED. PT HAD THOUGHT THAT HE MISSED BREAKFAST ONE TIME AND WANTED HIS BLOOD SUGAR CHECKED. PT WAS EASILY REDIRECTED. PT HAD PRN MORPHINE TWICE THIS SHIFT FOR PAIN. RIGHT LEG IS STILL IN BOOT AND PT WAS REPOSITIONED FOR COMFORT. WILL CONTINUE TO MONITOR. WILL GIVE REPORT TO ON COMING NURSE.
[2019-11-08 03:43] LABS: Basophils % 0.2 %; Eosinophils # 0.2 10^3/uL (0.0-0.8); Eosinophils % 3.3 %; Lymphocytes # 1.5 10^3/uL (0.8-4.8); Lymphocytes % 25.4 %; Mean Corpuscular HGB Conc 32.3 g/dL (30.0-36.0); Mean Corpuscular Hemoglobin 31.2 pg (28.0-34.0); Mean Corpuscular Volume 96.6 fL (80-94); Mean Platelet Volume 9.8 fL (7.4-10.4); Monocytes # 0.6 10^3/uL (0.2-0.9); Monocytes % 9.9 %; Neutrophils # 3.68 10^3/uL (1.8-7.7); Neutrophils % 60.7 %; Nucleated Red Blood Cells % 0 %; Platelet Count 143 10^3/cmm (130-400); Red Blood Count 3.21 10^6/uL (4.1-5.3); Red Cell Distribution Width 14.6 % (12.1-15.1); White Blood Count 6.1 10^3/uL (4.0-10.0)
[2019-11-08 04:08] LABS: Alanine Aminotransferase 22 U/L (0-41); Albumin Level 2.5 g/dL (3.5-5.2); Alkaline Phosphatase 134 IU/L (40-130); Anion Gap 9.5 (5-19); Aspartate Amino Transferase 43 U/L (0-40); Blood Urea Nitrogen 17 mg/dL (8-23); Calcium 8.2 mg/dL (8.5-10.5); Carbon Dioxide 34 mmol/L (22-29); Chloride 104 mmol/L (98-107); Globulin 2.2 g/dL (1.3-4.6); Glomerular Filtration Rate 66.6 mL/min (90-130); Glucose 95 mg/dL (65-115); Osmolality Calculated 292 mOsm/kg (285-295); Potassium 4.5 mmol/L (3.5-5.1); Sodium 143 mmol/L (136-145); Total Bilirubin 0.3 mg/dL (0.15-1.2); Total Protein 4.7 g/dL (6.6-8.7)
[2019-11-08 04:10] LABS: Magnesium 1.8 mg/dL (1.7-2.3)
[2019-11-08 06:40] LABS: Glucose Point of Care 74 mg/dL (70-110)
[2019-11-08] MEDS: cholecalciferol (vitamin D3) 1,000 unit Tablet 1000 UNIT PO (08:56)
[2019-11-08] MEDS: sulfamethoxazole-trimeth DS 160-800 mg Tablet 1 TAB PO ×2 (08:56→17:49)
[2019-11-08] MEDS: ALPRAZolam 0.25 mg Tablet PO ×2 (08:56→17:48)
[2019-11-08] MEDS: insulin glargine 100 units/1 mL 30 UNIT SUBCUT (08:56)
[2019-11-08] MEDS: aspirin 325 mg EC Tablet PO (08:56)
[2019-11-08] MEDS: pantoprazole DR 40 mg Tablet PO (08:56)
[2019-11-08] MEDS: citalopram 20 mg Tablet 10 MG PO (08:56)
[2019-11-08] MEDS: levothyroxine 25 mcg Tablet PO (08:56)
[2019-11-08] MEDS: pregabalin 50 mg Capsule PO ×2 (08:57→17:48)
[2019-11-08] MEDS: losartan 50 mg Tablet PO (08:57)
[2019-11-08] MEDS: metoprolol tartrate 25 mg Tablet 12.5 MG PO ×2 (08:57→17:48)
[2019-11-08] MEDS: duloxetine 60 mg Capsule PO (08:57)
[2019-11-08] MEDS: potassium chloride ER 10 mEq Tablet 40 MEQ PO (08:58)
[2019-11-08] MEDS: cefUROXime 250 mg Tablet 500 MG PO ×2 (08:58→17:49)
[2019-11-08] MEDS: iron polysaccharide complex 150 mg Capsule PO ×2 (08:58→17:49)
[2019-11-08] MEDS: sennosides-docusate Tablet 2 TAB PO ×2 (08:58→17:49)
[2019-11-08] MEDS: calcium carbonate 500 mg Chew Tablet PO ×2 (08:58→17:49)
--- NOTE | 2019-11-08 09:08 | PC.NURSE ---
DR. GOTTLIEB REQUESTED NURSING TO VERIFY PATIENT'S HOME MEDICATIONS WITH THE PATIENT'S PHARMACY. UNFORTUNATELY THE PATIENT USES [facility] IN [facility] AND THE FACILITY IS CLOSED TODAY. THIS NURSE WILL PASS ON THIS REQUEST TO THE DAY SHIFT NURSE TOMORROW TO VERIFY MEDICATIONS.
[2019-11-08 11:00] LABS: Glucose Point of Care 134 mg/dL (70-110)
[2019-11-08 11:35] LABS: Coronavirus Lab Test PTC SEE REPORT
--- NOTE | 2019-11-08 12:08 | PC.NURSE ---
pt refused to get up for lunch
--- NOTE | 2019-11-08 12:09 | PC.NURSE ---
PATIENT HAS REFUSED TO GET UP TO THE CHAIR FOR BREAKFAST AND LUNCH, OR ANYTIME TODAY. HE STATES THAT HE IS VERY SLEEPY AND WOULD LIKE TO REMAIN IN BED. PATIENT EDUCATION PROVIDED OVER COMPLICATIONS OF NOT BEING UP AND OUT OF BED.
--- NOTE | 2019-11-08 13:26 | P.PN_ITS ---
Subjective Subjective: Interval history: Overnight patient had complaints of nurses not answering his call light, I think that, no chest pain, no palpitation, no lightheadedness, no dizziness, no nausea, no vomiting, no notes atrial fibrillation events, no strokelike symptoms, no paresthesias Vitals/I&O/Wt Last Vital Signs Temp 97.8 F 11/08/19 10:48 Pulse 74 11/08/19 10:48 Resp 18 11/08/19 13:15 BP 146/75 11/08/19 10:48 Pulse Ox 93 11/08/19 10:48 11/07/19 11/08/19 11/08/19 22:59 06:59 14:59 Intake Total 240 / 600 900 / 1500 480 / 480 Output Total 325 / 325 200 / 525 900 / 900 Balance -85 / 275 700 / 975 -420 / -420 Physical Exam Const: COMMON NORMALS: no acute distress and patient oriented x3 HENMT: COMMON NORMALS: normocephalic HEAD & SCALP: normocephalic Neck/C-Spine: COMMON NORMALS: no JVD Resp: COMMON NORMALS: normal respiratory effort, No retractions, No use of accessory muscles and clear to auscultation bilaterally AUSCULTATION: clear to auscultation bilaterally Cardio: COMMON NORMALS: no JVD, regular rate, regular rhythm, S1 normal heart sound present and S2 normal heart sound present RATE: regular rate RHYTHM: regular rhythm HEART SOUNDS: S1 normal heart sound present and S2 normal heart sound present GI: COMMON NORMALS: Normal to inspection, nondistended, normoactive bowel sounds present, Soft to palpation, non-tender, No hepatosplenomegaly present, no masses and no bruits PALPATION: Yes Soft to palpation and Yes No hepatosplenomegaly present Extremity: COMMON NORMALS: capillary refill normal, no clubbing, cyanosis or edema, no calf tenderness and no pedal edema NARRATIVE EXTREMITY EXAM: Right lower extremity in a cast Neuro: COMMON NORMALS: patient oriented x3 Psych: COMMON NORMALS: mental status grossly normal Data : 11/08/19 03:08 11/08/19 03:08 Micro: Microbiology 11/05/19 04:00 Wound Culture - Final Ankle - #2 11/05/19 04:00 Anaerobic Culture - Preliminary Ankle - #1 A&P Assessment and plan (1) CVA (cerebral vascular accident): -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 No significant extracranial carotid artery stenosis. Less than 50% stenosis with mild plaque. 2. Severe high-grade stenoses bilaterally in the cavernous and supraclinoid carotid arteries. Greatest stenosis on the RIGHT. Probably greater than 80%. 3. Moderate stenosis RIGHT M1 segment. May be congenital or due to atherosclerotic disease. CT HEAD: 1. No acute intracranial hemorrhage or edema. 2. Mild atrophy and mild chronic ischemic disease. 3. Mild diffuse ventriculomegaly is new since 2006. Out of proportion to the amount of atrophy. Consider mild early changes related to normal pressure hydrocephalus as a possible etiology. -Given atrial fibrillation, history of syncope in the past, will treat as if he has had a CVA -Currently no focal neurologic deficits Plan: -Continue aspirin statin -Continue metoprolol, losartan -We will continue to monitor -PT OT -Awaiting snf placement Status: Acute (2) Paroxysmal A-fib: -Seems like paroxysmal atrial fibrillation has been somewhat of a chronic issue for him given his recurrent CVAs, chest symptomatology -Converted to normal sinus rhythm after labetalol in the OR -Continue telemetry monitoring -Currently in the right now normal sinus rhythm -Will likely need event monitor on discharge -Continue Medrol 12.5 twice daily -No anticoagulation at this point given no recurrent atrial fibrillation events, this can be readdressed as outpatient Status: Acute (3) NSTEMI (non-ST elevated myocardial infarction): -6-hour troponin 98.3 8, delta 6.38, troponin this morning 63 -EKG shows no acute ST-T wave changes -No complaints of chest pain -Echocardiogram shows an ejection fraction 55%, grade 1 out of 4 diastolic dysfunction, mild aortic valve stenosis -Continue aspirin, statin, beta-kam -Likely type II NSTEMI, from paroxysmal A. fib, but cannot rule out cardiac etiology -Patient will need an outpatient stress test -We will have patient follow-up with cardiology Status: Acute (4) Fall at home: No loss of consciousness. Patient has had recurrent episodes of falling a nd near syncope. Sounds like he may have some orthostasis as well as a contributing factor of neuropathy that has worsened over time. No preceding symptoms prior to this episode. Status: Acute Qualifiers: Encounter type: initial encounter Qualified Code(s): W19.XXXA - Unspecified fall, initial encounter; Y92.009 - Unspecified place in unspecified non-institutional (private) residence as the place of occurrence of the external cause (5) Open bimalleolar fracture of right ankle: Pain control, anticoagulation as per orthopedic team Patient will have PT OT as inpatient Hopefully discharge to snf on Saturday- Status: Acute Qualifiers: Encounter type: initial encounter Open fracture type: open type I or II Qualified Code(s): S82.841B - Displaced bimalleolar fracture of right lower leg, initial encounter for open fracture type I or II (6) ASHD (arteriosclerotic heart disease): Status: Chronic (7) Diabetes: -A1c 13.2 -Glargine 30 units at breakfast, 7 units at bedtime Status: Chronic Qualifiers: Diabetes mellitus type: type 2 Diabetes mellitus senior litigation paralegal insulin use: with retirement use Diabetes mellitus complication status: with kidney complications Diabetes mellitus complication detail: with chronic kidney disease Chronic kidney disease stage: stage 3 (moderate) Qualified Code(s): E11.22 - Type 2 diabetes mellitus with diabetic chronic kidney disease; N18.3 - Chronic kidney disease, stage 3 (moderate); Z79.4 - broach trouble shooter (current) use of i nsulin (8) Polyneuropathy: Status: Chronic (9) RLS (restless legs syndrome): Status: Chronic (10) COPD (chronic obstructive pulmonary disease): Continue home inhalers Status: Chronic (11) Anemia: -Hemoglobin down to 9.9 -No overt signs of bleeding -No hemodynamic compromise -No bloody or black stools -Continue Protonix 40 daily -Monitor hemoglobin closely -We will do iron studies stool for occult blood Status: Acute Additional A&P Information Inpatient admission Postoperative management with pain control with home morphine and tramadol, recommended antibiotics and initiation of DVT prophylaxis Insulin therapy for diabetes Continued Lyrica, levothyroxine; agree with continuation of citalopram and Jareth cline Have held on the Linzess currently but will add stool softeners Continue PPI Currently he is in sinus rhythm Supportive care otherwise Of note patient's has stage IV cancer and this is a concerning factor for Mr. Baumann understandably Awaiting snf placement Full code Lovenox for DVT prophylaxis Attestations Medical Necessity Statement*: Patient requires hospitalization for ankle fracture, stroke, atrial fibrillation Coding Level of Care Code Acute Manager Express for [facility] Fwd Diagnoses CVA (cerebral vascular accident) I63.9 Paroxysmal A-fib I48.0 NSTEMI (non-ST elevated myocardial infarction) I21.4 Fall at home W19.XXXA; Y92.009 Encounter type: initial encounter Open bimalleolar fracture of right ankle S82.841B Encounter type: initial encounter Open fracture type: open type I or II ASHD (arteriosclerotic heart disease) I25.10 Diabetes E11.22; N18.3; Z79.4 Diabetes mellitus type: type 2 Diabetes mellitus senior litigation paralegal insulin use: with senior litigation paralegal use Diabetes mellitus complication status: with kidney complications Diabetes mellitus complication detail: with chronic kidney disease Chronic kidney disease stage: stage 3 (moderate) Polyneuropathy G62.9 RLS (restless legs syndrome) G25.81 COPD (chronic obstructive pulmonary disease) J44.9 Anemia D64.9
[2019-11-08 15:55] LABS: Glucose Point of Care 249 mg/dL (70-110)
[2019-11-08] MEDS: enoxaparin 40 mg/0.4 mL Syringe SUBCUT (17:50)
--- NOTE | 2019-11-08 18:53 | PC.NURSE ---
PATIENT HAS HAD AN UNEVENTFUL DAY. ROUNDED WITH DR. LOFTON, PATIENT WILL BE READY TO DISCHARGE FROM [facility]OPED[facility] TOMORROW. PAIN IS WELL MANAGED. PATIENT RECEIVED A BATH THIS SHIFT. NO NEW COMPLAINTS NOTED.
--- NOTE | 2019-11-08 19:19 | PM.PN ---
Subjective Subjective: Interval history: 69-year-old white male postoperative day 3 status post ORIF right grade II bimalleolar ankle fracture. states he has better sensation and feel he has decreased swelling about right ankle Vitals/I&O/Wt Last Vital Signs Temp 98.4 F 11/08/19 19:00 Pulse 77 11/08/19 19:00 Resp 14 11/08/19 19:00 BP 162/76 11/08/19 19:00 Pulse Ox 97 11/08/19 19:00 11/08/19 11/08/19 11/08/19 06:59 14:59 22:59 Intake Total 900 / 1500 480 / 480 240 / 720 Output Total 200 / 525 1300 / 1300 625 / 1925 Balance 700 / 975 -820 / -820 -385 / -1205 Physical Exam Narrative: EXAM NARRATIVE: 69-year-old white male appears older than his stated age. No acute distress. Dressing clean dry and intact. Toes with normal capillary refill. vital signs stable, afebrile Cultures from right ankle no growth at this time. Hemoglobin 10.0 need for transfusion Data : 11/08/19 03:08 11/08/19 03:08 Micro: Microbiology 11/05/19 04:00 Anaerobic Culture - Preliminary Ankle - #1 11/05/19 04:00 Wound Culture - Final Ankle - #2 A&P Assessment and plan (1) Open bimalleolar fracture of right ankle: Plan for discharge to shelter facility in [facility] tomorrow. Discharge prescriptions for pain medication (morphine sulfate immediate release and tramadol) prescriptions signed and on chart Continue extended oral prophylaxis antibiotics due to open fracture with significant risk factors such as diabetes with cefuroxime and Septra Nonweightbearing right lower extremity for 6 weeks postoperatively. Skilled facility can examine dressing if any concerns they may change the dressing otherwise they can leave the dressing intact. Follow-up in the office on 11/18/2019 transportation arrangements will be to be made to transfer patient from [facility] from the shelter facility to the orthopedic clinic. Thank you! 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
--- NOTE | 2019-11-08 19:27 | PC.NURSE ---
Rounding: Patient resting in bed and watching TV. Patient denies pain at this time. Patient able to wiggle his toes and has good capillary refill to R foot. Patient denies any needs at this time. Call light is within reach and will continue to monitor.
[2019-11-08 20:13] LABS: Glucose Point of Care 285 mg/dL (70-110)
[2019-11-08] MEDS: donepezil 5 MG Tablet 10 MG PO (20:56)
[2019-11-08] MEDS: atorvastatin 40 mg Tablet 20 MG PO (20:56)
[2019-11-08] MEDS: insulin glargine 100 units/1 mL 70 UNIT SUBCUT (20:59)
--- NOTE | 2019-11-08 22:00 | PC.NURSE ---
Patient ate a bannana at bedside and peanut butter and mary crackers i provided as requested by patient as a snack.
[2019-11-09] VITALS (12 sets, daily range): BP systolic 122–140; BP diastolic 61–76; PULSE 66–81; RESP 12–18; TEMP 36.6–36.8; O2SAT 94–100
--- NOTE | 2019-11-09 | PC.NURSE ---
Patient placed on his call light. upon entering the room patient complained of R foot pain. Assessed patient foot and patient had moved his foot off the pillow but both feet were on the bed. Patient Right foot was placed back on the pillow for elevation. Patient could wiggle his toes, sense me touching his toes, good cap refill, and warm to touch. Patient was complaining of pain. Patient provided tramadol as ordered. At 0040 patient stated he was still hurting and nauseated. I told patient it was not quite time for his morphine and could call the electrification adviser provider for him. I offered patient sprite and unsalted saltines to the patient. Call placed to Dr. larry regarding patients pain, interventions, and nausea. Provider placed orders see MAR. Patient stated sprite and saltines and zofran improved his symptoms. I informed patient if i seen any orders for x1 pain medications i would bring them if not I would bring his morphine when it was available. Patient verbalized understanding. Will continue to monitor.
[2019-11-09] MEDS: TRAMadol 50 mg Tablet PO (00:04)
[2019-11-09] MEDS: ondansetron 2 mg/ML SDV 2 mL 4 MG IVP (01:01)
[2019-11-09 01:20] LABS: Glucose Point of Care 73 mg/dL (70-110)
--- NOTE | 2019-11-09 01:38 | PC.NURSE ---
At 0116 Patient blood sugar was 73 patient requested some orange juice and a sandwich. Patient assisted to sit up and with meal set up. Patient awake, alert and oriented at this time. Will continue to monitor.
[2019-11-09] MEDS: morphine IR 15 mg Tablet PO ×3 (01:51→19:27)
--- NOTE | 2019-11-09 02:02 | PC.NURSE ---
Rounded on Patient at 0151 to give pain meds. He had just finished eating and drinking his 8oz of juice will recheck in 30min.
[2019-11-09 02:37] LABS: Glucose Point of Care 124 mg/dL (70-110)
[2019-11-09 04:36] LABS: Alanine Aminotransferase 30 U/L (0-41); Albumin Level 2.8 g/dL (3.5-5.2); Alkaline Phosphatase 155 IU/L (40-130); Anion Gap 9.5 (5-19); Aspartate Amino Transferase 57 U/L (0-40); Blood Urea Nitrogen 19 mg/dL (8-23); Calcium 8.7 mg/dL (8.5-10.5); Carbon Dioxide 32 mmol/L (22-29); Chloride 103 mmol/L (98-107); Globulin 2.1 g/dL (1.3-4.6); Glomerular Filtration Rate 74.3 mL/min (90-130); Glucose 138 mg/dL (65-115); Magnesium 1.7 mg/dL (1.7-2.3); Osmolality Calculated 289 mOsm/kg (285-295); Phosphorus 3.4 mg/dL (2.5-4.5); Potassium 4.5 mmol/L (3.5-5.1); Sodium 140 mmol/L (136-145); Total Bilirubin 0.3 mg/dL (0.15-1.2); Total Protein 4.9 g/dL (6.6-8.7)
--- NOTE | 2019-11-09 05:32 | PC.NURSE ---
End of shift: patient has had uneventful shift except when his foot came off his pillow and cause him some pain. He is pain free and resting. Patients blood sugar on labs was 134. Patient has been alert and appropriate this shift. Patient call light is within reach, bed in low position, and side rails up x2. Will continue to monitor.
[2019-11-09 06:24] LABS: Glucose Point of Care 182 mg/dL (70-110)
--- NOTE | 2019-11-09 08:17 | PC.NURSE ---
Dr mcnulty at bedside at this time for assessment and discussion with patient of POC and discharge to SNF
[2019-11-09] MEDS: metoprolol tartrate 25 mg Tablet 12.5 MG PO ×2 (08:19→17:10)
[2019-11-09] MEDS: cefUROXime 250 mg Tablet 500 MG PO ×2 (08:19→17:10)
[2019-11-09] MEDS: potassium chloride ER 10 mEq Tablet 40 MEQ PO (08:19)
[2019-11-09] MEDS: ALPRAZolam 0.25 mg Tablet PO ×2 (08:20→17:10)
[2019-11-09] MEDS: citalopram 20 mg Tablet 10 MG PO (08:20)
[2019-11-09] MEDS: sulfamethoxazole-trimeth DS 160-800 mg Tablet 1 TAB PO ×2 (08:20→17:11)
[2019-11-09] MEDS: calcium carbonate 500 mg Chew Tablet PO ×2 (08:20→17:11)
[2019-11-09] MEDS: sennosides-docusate Tablet 2 TAB PO ×2 (08:20→17:10)
[2019-11-09] MEDS: aspirin 325 mg EC Tablet PO (08:20)
[2019-11-09] MEDS: cholecalciferol (vitamin D3) 1,000 unit Tablet 1000 UNIT PO (08:20)
[2019-11-09] MEDS: pantoprazole DR 40 mg Tablet PO (08:21)
[2019-11-09] MEDS: losartan 50 mg Tablet PO (08:21)
[2019-11-09] MEDS: duloxetine 60 mg Capsule PO (08:21)
[2019-11-09] MEDS: pregabalin 50 mg Capsule PO ×2 (08:21→17:11)
[2019-11-09] MEDS: iron polysaccharide complex 150 mg Capsule PO ×2 (08:22→17:11)
[2019-11-09] MEDS: insulin glargine 100 units/1 mL 30 UNIT SUBCUT (08:22)
[2019-11-09] MEDS: levothyroxine 25 mcg Tablet PO (08:22)
[2019-11-09 08:57] LABS: Basophils % 0.5 %; Eosinophils # 0.3 10^3/uL (0.0-0.8); Eosinophils % 4.3 %; Hematocrit 32.8 % (42.0-52.0); Hemoglobin 10.3 g/dL (11.7-16.6); Lymphocytes # 1.3 10^3/uL (0.8-4.8); Lymphocytes % 20.5 %; Mean Corpuscular HGB Conc 31.4 g/dL (30.0-36.0); Mean Corpuscular Hemoglobin 30.1 pg (28.0-34.0); Mean Corpuscular Volume 95.9 fL (80-94); Mean Platelet Volume 9.8 fL (7.4-10.4); Monocytes # 0.5 10^3/uL (0.2-0.9); Neutrophils # 4.33 10^3/uL (1.8-7.7); Neutrophils % 66.5 %; Nucleated Red Blood Cells % 0 %; Platelet Count 145 10^3/cmm (130-400); Red Blood Count 3.42 10^6/uL (4.1-5.3); Red Cell Distribution Width 14.2 % (12.1-15.1); White Blood Count 6.5 10^3/uL (4.0-10.0)
[2019-11-09 11:20] LABS: Glucose Point of Care 183 mg/dL (70-110)
--- NOTE | 2019-11-09 12:31 | PC.NURSE ---
Dr garrett notified of patients request for enema to have a BM verbal order for Fleets mineral oil enema x1 one received and confirmed
[2019-11-09] MEDS: mineral oil ENEMA 133 mL PR (13:22)
--- NOTE | 2019-11-09 13:23 | PC.NURSE ---
Visitor Bassem Baumann phone number [phone]
--- NOTE | 2019-11-09 15:05 | PM.PN ---
Subjective Subjective: Interval history: Patient had no complaints this morning, no fevers, chills, no cough, pain is controlled with his home medications, awaiting alf placement Vitals/I&O/Wt Last Vital Signs Temp 97.9 F 11/09/19 14:50 Pulse 66 11/09/19 14:50 Resp 13 11/09/19 14:50 BP 128/61 11/09/19 14:50 Pulse Ox 96 11/09/19 14:50 11/09/19 11/09/19 11/09/19 06:59 14:59 22:59 Intake Total 500 / 1220 600 / 600 Output Total 525 / 3100 975 / 975 Balance -25 / -1880 -375 / -375 Physical Exam Const: COMMON NORMALS: no acute distress and patient oriented x3 HENMT: COMMON NORMALS: normocephalic HEAD & SCALP: normocephalic Neck/C-Spine: COMMON NORMALS: no JVD Resp: COMMON NORMALS: normal respiratory effort, No retractions, No use of accessory muscles and clear to auscultation bilaterally AUSCULTATION: clear to auscultation bilaterally Cardio: COMMON NORMALS: no JVD, regular rate, regular rhythm, S1 normal heart sound present and S2 normal heart sound present RATE: regular rate RHYTHM: regular rhythm HEART SOUNDS: S1 normal heart sound present and S2 normal heart sound present GI: COMMON NORMALS: Normal to inspection, nondistended, normoactive bowel sounds present, Soft to palpation, non-tender, No hepatosplenomegaly present, no masses and no bruits PALPATION: Yes Soft to palpation and Yes No hepatosplenomegaly present Extremity: COMMON NORMALS: capillary refill normal, no clubbing, cyanosis or edema, no calf tenderness and no pedal edema NARRATIVE EXTREMITY EXAM: Right lower extremity in a cast Neuro: COMMON NORMALS: patient oriented x3 Psych: COMMON NORMALS: mental status grossly normal Data : 11/09/19 08:28 11/09/19 03:30 Micro: Microbiology 11/05/19 04:00 Anaerobic Culture - Preliminary Ankle - #1 11/05/19 04:00 Wound Culture - Final Ankle - #2 A&P Assessment and plan (1) CVA (cerebral vascular accident): -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 No significant extracranial carotid artery stenosis. Less than 50% stenosis with mild plaque. 2. Severe high-grade stenoses bilaterally in the cavernous and supraclinoid carotid arteries. Greatest stenosis on the RIGHT. Probably greater than 80%. 3. Moderate stenosis RIGHT M1 segment. May be congenital or due to atherosclerotic disease. CT HEAD: 1. No acute intracranial hemorrhage or edema. 2. Mild atrophy and mild chronic ischemic disease. 3. Mild diffuse ventriculomegaly is new since 2006. Out of proportion to the amount of atrophy. Consider mild early changes related to normal pressure hydrocephalus as a possible etiology. -Given atrial fibrillation, history of syncope in the past, will treat as if he has had a CVA -Currently no focal neurologic deficits Plan: -Continue aspirin statin -Continue metoprolol, losartan -We will continue to monitor -PT OT -Awaiting alf placement Status: Acute (2) Paroxysmal A-fib: -Seems like paroxysmal atrial fibrillation has been somewhat of a chronic issue for him given his recurrent CVAs, chest symptomatology -Converted to normal sinus rhythm after labetalol in the OR -Continue telemetry monitoring -Currently in the right now normal sinus rhythm -Will likely need event monitor on discharge -Continue Medrol 12.5 twice daily -No anticoagulation at this point given no recurrent atrial fibrillation events, this can be readdressed as outpatient Status: Acute (3) NSTEMI (non-ST elevated myocardial infarction): -6-hour troponin 98.3 8, delta 6.38, troponin this morning 63 -EKG shows no acute ST-T wave changes -No complaints of chest pain -Echocardiogram shows an ejection fraction 55%, grade 1 out of 4 diastolic dysfunction, mild aortic valve stenosis -Continue aspirin, statin, beta-kam -Likely type II NSTEMI, from paroxysmal A. fib, but cannot rule out cardiac etiology -Patient will need an outpatient stress test -We will have patient follow-up with cardiology Status: Acute (4) Fall at home: No loss of consciousness. Patient has had recurrent episodes of falling and near syncope. Sounds like he may have some orthostasis as well as a contributing factor of neuropathy that has worsened over time. No preceding symptoms prior to this episode. Status: Acute Qualifiers: Encounter type: initial encounter Qualified Code(s): W19.XXXA - Unspecified fall, initial encounter; Y92.009 - Unspecified place in unspecified non-institutional (private) residence as the place of occurrence of the external cause (5) Open bimalleolar fracture of right ankle: Pain control, anticoagulation as per orthopedic team Patient will have PT OT as inpatient Hopefully discharge to alf in next 24 hours Status: Acute Qualifiers: Encounter type: initial encounter Open fracture type: open type I or II Qualified Code(s): S82.841B - Displaced bimalleolar fracture of right lower leg, initial encounter for open fracture type I or II (6) ASHD (arteriosclerotic heart disease): Status: Chronic (7) Diabetes: -A1c 13.2 -Glargine 30 units at breakfast, 7 units at bedtime Status: Chronic Qualifiers: Diabetes mellitus type: type 2 Diabetes mellitus ferry terminal agent insulin use: with ferry terminal agent use Diabetes mellitus complication status: with kidney complications Diabetes mellitus complication detail: with chronic kidney disease Chronic kidney disease stage: stage 3 (moderate) Qualified Code(s): E11.22 - Type 2 diabetes mellitus with diabetic chronic kidney disease; N18.3 - Chronic kidney disease, stage 3 (moderate); Z79.4 - retirement (current) use of insulin (8) Polyneuropathy: Status: Chronic (9) RLS (restless legs syndrome): Status: Chronic (10) COPD (chronic obstructive pulmonary disease): Continue home inhalers Status: Chronic (11) Anemia: -Hemoglobin down to 9.9 -No overt signs of bleeding -No hemodynamic compromise -No bloody or black stools -Continue Protonix 40 daily -Monitor hemoglobin closely -We will do iron studies stool for occult blood Status: Acute Additional A&P Information Inpatient admission Postoperative management with pain control with home morphine and tramadol, recommended antibiotics and initiation of DVT prophylaxis Insulin therapy for diabetes Continued Lyrica, levothyroxine; agree with continuation of citalopram and Aricept Have held on the Linzess currently but will add stool softeners Continue PPI Currently he is in sinus rhythm Supportive care otherwise Of note patient's has stage IV cancer and this is a concerning factor for Mr. Baumann understandably Awaiting alf placement Full code Lovenox for DVT prophylaxis Attestations Medical Necessity Statement*: Patient requires hospitalization for stroke, fall, fracture, paroxysmal A. fib, NSTEMI, awaiting alf placement Coding Level of Care Code Acute Local Area Network Administrator for Chg Fwd Diagnoses CVA (cerebral vascular accident) I63.9 Paroxysmal A-fib I48.0 NSTEMI (non-ST elevated myocardial infarction) I21.4 Fall at home W19.XXXA; Y92.009 Encounter type: initial encounter Open bimalleolar fracture of right ankle S82.841B Encounter type: initial encounter Open fracture type: open type I or II ASHD (arteriosclerotic heart disease) I25.10 Diabetes E11.22; N18.3; Z79.4 Diabetes mellitus type: type 2 Diabetes mellitus ferry terminal agent insulin use: with ferry terminal agent use Diabetes mellitus complication status: with kidney complications Diabetes mellitus complication detail: with chronic kidney disease Chronic kidney disease stage: stage 3 (moderate) Polyneuropathy G62.9 RLS (restless legs syndrome) G25.81 COPD (chronic obstructive pulmonary disease) J44.9 Anemia D64.9
[2019-11-09 16:08] LABS: Glucose Point of Care 198 mg/dL (70-110)
[2019-11-09] MEDS: enoxaparin 40 mg/0.4 mL Syringe SUBCUT (17:10)
--- NOTE | 2019-11-09 20:01 | PC.NURSE ---
REPORT RECEIVED FROM OFF GOING NURSE. PT C/O PAIN IN RIGHT LEG 11/05. FOOTBALL COACH NURSE GAVE PRN MORPHINE. READJUSTED PT IN BED. WILL CONTINUE TO MONITOR.
[2019-11-09 20:45] LABS: Glucose Point of Care 247 mg/dL (70-110)
[2019-11-09] MEDS: atorvastatin 40 mg Tablet 20 MG PO (20:54)
[2019-11-09] MEDS: donepezil 5 MG Tablet 10 MG PO (20:54)
[2019-11-09] MEDS: insulin glargine 100 units/1 mL 70 UNIT SUBCUT (20:55)
[2019-11-09 22:42] LABS: Glucose Point of Care 164 mg/dL (70-110)
[2019-11-10] VITALS (8 sets, daily range): BP systolic 127–145; BP diastolic 65–76; PULSE 70–77; RESP 12–16; TEMP 36.6–36.7; O2SAT 95–99
[2019-11-10] MEDS: morphine IR 15 mg Tablet PO ×2 (00:32→08:30)
--- NOTE | 2019-11-10 00:34 | PC.NURSE ---
PT IS IN ROOM MOANING THIS NURSE WAS ROUNDING. PT C/O 10/10 PAIN IN HEAD AND RIGHT LEG. PRN MORPHINE WAS GIVEN PO. ROOM WAS DARKENED FOR PT. WILL CONTINUE TO MONITOR.
[2019-11-10 00:40] LABS: Glucose Point of Care 132 mg/dL (70-110)
--- NOTE | 2019-11-10 02:14 | PC.NURSE ---
SENIOR PROPERTY ACCOUNTANT CHANGED PT BED. PT DENIES PAIN AT THIS TIME.
[2019-11-10 04:33] LABS: Basophils % 0.2 %; Eosinophils # 0.4 10^3/uL (0.0-0.8); Hematocrit 28.1 % (42.0-52.0); Lymphocytes # 1.4 10^3/uL (0.8-4.8); Mean Corpuscular Hemoglobin 30.5 pg (28.0-34.0); Mean Corpuscular Volume 95.3 fL (80-94); Monocytes # 0.7 10^3/uL (0.2-0.9); Monocytes % 7.9 %; Neutrophils % 69.7 %; Nucleated Red Blood Cells % 0 %; Platelet Count 125 10^3/cmm (130-400); Red Blood Count 2.95 10^6/uL (4.1-5.3); White Blood Count 8.2 10^3/uL (4.0-10.0)
[2019-11-10 04:50] LABS: Alanine Aminotransferase 32 U/L (0-41); Albumin Level 2.5 g/dL (3.5-5.2); Alkaline Phosphatase 139 IU/L (40-130); Aspartate Amino Transferase 45 U/L (0-40); Blood Urea Nitrogen 22 mg/dL (8-23); Calcium 8.2 mg/dL (8.5-10.5); Carbon Dioxide 33 mmol/L (22-29); Chloride 104 mmol/L (98-107); Glomerular Filtration Rate 74.3 mL/min (90-130); Glucose 111 mg/dL (65-115); Magnesium 1.7 mg/dL (1.7-2.3); Osmolality Calculated 285 mOsm/kg (285-295); Phosphorus 2.9 mg/dL (2.5-4.5); Sodium 139 mmol/L (136-145); Total Bilirubin 0.2 mg/dL (0.15-1.2); Total Protein 4.5 g/dL (6.6-8.7)
[2019-11-10 06:26] LABS: Glucose Point of Care 83 mg/dL (70-110)
--- NOTE | 2019-11-10 06:30 | PC.NURSE ---
PT HAD MULTIPLE TIMES WHERE A PRN PAIN PILL WAS NEEDED. PT HAD SEVERAL INCONT EPISODES. WILL GIVE REPORT TO ON COMING NURSE.
[2019-11-10] MEDS: insulin glargine 100 units/1 mL 30 UNIT SUBCUT (08:28)
[2019-11-10] MEDS: cefUROXime 250 mg Tablet 500 MG PO (08:28)
[2019-11-10] MEDS: sennosides-docusate Tablet 2 TAB PO (08:28)
[2019-11-10] MEDS: potassium chloride ER 10 mEq Tablet 40 MEQ PO (08:28)
[2019-11-10] MEDS: citalopram 20 mg Tablet 10 MG PO (08:29)
[2019-11-10] MEDS: pantoprazole DR 40 mg Tablet PO (08:29)
[2019-11-10] MEDS: losartan 50 mg Tablet PO (08:29)
[2019-11-10] MEDS: ALPRAZolam 0.25 mg Tablet PO (08:29)
[2019-11-10] MEDS: calcium carbonate 500 mg Chew Tablet PO (08:29)
[2019-11-10] MEDS: metoprolol tartrate 25 mg Tablet 12.5 MG PO (08:30)
[2019-11-10] MEDS: duloxetine 60 mg Capsule PO (08:31)
[2019-11-10] MEDS: aspirin 325 mg EC Tablet PO (08:31)
[2019-11-10] MEDS: iron polysaccharide complex 150 mg Capsule PO (08:31)
[2019-11-10] MEDS: sulfamethoxazole-trimeth DS 160-800 mg Tablet 1 TAB PO (08:31)
[2019-11-10] MEDS: pregabalin 50 mg Capsule PO (08:31)
[2019-11-10] MEDS: cholecalciferol (vitamin D3) 1,000 unit Tablet 1000 UNIT PO (08:31)
[2019-11-10] MEDS: levothyroxine 25 mcg Tablet PO (08:31)
[2019-11-10 11:20] LABS: Glucose Point of Care 85 mg/dL (70-110)
--- NOTE | 2019-11-10 11:36 | P.DS_ITS ---
Discharge Providers Date of Admission: 11/05/19 05:11 Date of Discharge: November 10, 2019 Attending Provider at Admission: Amy Lauren MD Attending Provider at Discharge: Enzo Guan MD Primary Care Provider: Terra Good MD Diagnoses at Discharge Discharge Diagnosis (1) CVA (cerebral vascular accident): Status: Acute (2) Paroxysmal A-fib: Status: Acute (3) NSTEMI (non-ST elevated myocardial infarction): Status: Acute (4) Fall at home: Status: Acute Qualifiers: Encounter type: initial encounter Qualified Code(s): W19.XXXA - Unspecified fall, initial encounter; Y92.009 - Unspecified place in unspecified non-institutional (private) residence as the place of occurrence of the external cause (5) Open bimalleolar fracture of right ankle: Status: Acute Qualifiers: Encounter type: initial encounter Open fracture type: open type I or II Qualified Code(s): S82.841B - Displaced bimalleolar fracture of right lower leg, initial encounter for open fracture type I or II (6) ASHD (arteriosclerotic heart disease): Status: Chronic (7) Diabetes: Status: Chronic Qualifiers: Diabetes mellitus type: type 2 Diabetes mellitus prison insulin use: with intermediate school teacher use Diabetes mellitus complication status: with kidney complications Diabetes mellitus complication detail: with chronic kidney disease Chronic kidney disease stage: stage 3 (moderate) Qualified Code(s): E11.22 - Type 2 diabetes mellitus with diabetic chronic kidney disease; N18.3 - Chronic kidney disease, stage 3 (moderate); Z79.4 - retirement (current) use of insulin (8) Polyneuropathy: Status: Chronic (9) RLS (restless legs syndrome): Status: Chronic (10) COPD (chronic obstructive pulmonary disease): Status: Chronic (11) Anemia: Status: Acute Reason for Visit Reason for Visit: ANKLE PAIN Hospital Course Discharge Summary: This is seen 61-year-old male with a past medical history of CVAs, CAD, CHF, type 2 diabetes mellitus, acute on chronic anemia, polyneuropathy, restless leg syndrome, COPD, who presents to [facility] due to complaints of a fall, concerns for CVA, chest pain Patient was admitted to [facility] for fall with open bimalleolar fracture of the right ankle, status post surgical intervention by Dr. Nava, tolerated surgical procedure well, right lower extremity in a binder, worked with physical therapy. Patient was discharged to long term, discharge orthopedic instructions as per Dr. Nava, discharged on aspirin 325 daily for DVT prophylaxis, Bactrim and cefuroxime for antibiotic prophylaxis. During patient's in normal sinus rhythm throughout his hospital mission, intraoperative course, he had A. fib with RVR, resolved with labetalol, remained due to history of CVAs in the past, patient was discharged on a 30-day event monitor. Discharge Metroprolol 12.5 twice daily. Patient was not discharged on anticoagulation, as he remained in normal sinus rhythm throughout his hospital mission, and his hemoglobin trended lower to 9.1 on discharge. After discussion risk and benefits, patient voices understanding, all questions answered, decision was made not to anticoagulate at this point. Monitor heart rhythm for the next 30 days on event monitor. Follow-up with cardiology as outpatient. Monitor hemoglobin. On admission, there were also concerns for CVA, he has has history of CVA in the past, had a syncopal episode that led to his fall, had concerns of left facial numbness, given his paroxysmal atrial fibrillation, there was concern for embolic stroke. -1. No significant extracranial carotid artery stenosis. Less than 50% stenosis with mild plaque. 2. Severe high-grade stenoses bilaterally in the cavernous and supraclinoid carotid arteries. Greatest stenosis on the RIGHT. Probably greater than 80%. 3. Moderate stenosis RIGHT M1 segment. May be congenital or due to atherosclerotic disease. CT HEAD: 1. No acute intracranial hemorrhage or edema. 2. Mild atrophy and mild chronic ischemic disease. 3. Mild diffuse ventriculomegaly is new since 2006. Out of proportion to the amount of atrophy. Consider mild early changes related to normal pressure hydrocephalus as a possible etiology. -Given atrial fibrillation, history of syncope in the past, will treat as if he has had a CVA CTA head and neck: 1. No significant extracranial carotid artery stenosis. Less than 50% stenosis with mild plaque. 2. Severe high-grade stenoses bilaterally in the cavernous and supraclinoid carotid arteries. Greatest stenosis on the RIGHT. Probably greater than 80%. 3. Moderate stenosis RIGHT M1 segment. May be congenital or due to atherosclerotic disease. -Given patient's history of paroxysmal atrial fibrillation, history of syncope in the past, patient was treated as if he had a CVA, remain neurologically intact, left facial numbness resolved -Patient was discharged on aspirin, statin with close follow-up neurology as outpatient. For his chest pain, patient was found to have NSTEMI, with a history of CAD in the past, troponins as high as 98.3, trending down to 63, EKG showed no acute ST-T wave changes, no significant complaints of chest pain throughout hospital admission, echocardiogram showed ejection fraction 55%, grade 1 out of 4 diastolic dysfunction, mild aortic valve stenosis, no wall motion abnormalities, likely patient a type II NSTEMI from paroxysmal atrial fibrillation, but cannot rule out cardiac etiology. Patient was discharged on aspirin, statin, beta- kam, with close follow-up with cardiology outpatient for consideration of stress testing. Patient was found to have acute on chronic anemia throughout his hospital admission, hemoglobin remained between 9-10, no overt signs of bleeding, no hemodynamic compromise, no bloody or black stools. Patient was discharged on Protonix 40 twice daily, Carafate twice daily, to monitor serial hemoglobins for the next 5 days, monitor for bloody or black stools, monitor for hemodynamic compromise. Patient is to follow-up with general surgery for consideration her EGD colonoscopy in 1 month. Physical Exam Const: COMMON NORMALS: no acute distress and patient oriented x3 HENMT: COMMON NORMALS: normocephalic HEAD & SCALP: normocephalic Neck/C-Spine: COMMON NORMALS: no JVD Resp: COMMON NORMALS: normal respiratory effort, No retractions, No use of accessory muscles and clear to auscultation bilaterally AUSCULTATION: clear to auscultation bilaterally Cardio: COMMON NORMALS: no JVD, regular rate, regular rhythm, S1 normal heart sound present and S2 normal heart sound present RATE: regular rate RHYTHM: regular rhythm HEART SOUNDS: S1 normal heart sound present and S2 normal heart sound present GI: COMMON NORMALS: Normal to inspection, nondistended, normoactive bowel sounds present, Soft to palpation, non-tender, No hepatosplenomegaly present, no masses and no bruits PALPATION: Yes Soft to palpation and Yes No hepatosplenomegaly present Extremity: COMMON NORMALS: capillary refill normal, no clubbing, cyanosis or edema, no calf tenderness and no pedal edema Neuro: COMMON NORMALS: patient oriented x3 Psych: COMMON NORMALS: mental status grossly normal Discharge Data Data Completed and Pending: Completed Studies During Hospitalization Category Date Time Status CT angio headneck * [id number] Stat Cat Scan 11/05/19 10:[address] head wo con* [id number] Routine Cat Scan 11/05/19 10:16 Completed XR ankle RT min 3 V* [id number] Routine Exams 11/05/19 04:10 Completed XR ankle RT min 3 V* [id number] Stat Exams 11/04/19 23:54 Completed XR chest 1V rashaad ble [id number] Stat Exams 11/04/19 23:57 Completed XR foot RT min 3V * [id number] Stat Exams 11/04/19 23:54 Completed XR tibia fibula R T 2V [id number] Stat Exams 11/04/19 23:54 Completed CV echo complete* [id number] Routine Ultrasound 11/05/19 08:18 Completed Pending at discharge Category Date Time Status Anaerobic Culture Routine Lab 11/05/19 04:00 Results Complete Blood Co unt w/Auto AM LABS Lab 11/11/19 04:00 Ordered Complete Blood Co unt w/Auto AM LABS Lab 11/12/19 04:00 Ordered Comprehensive Met abolic Panel AM LA BS Lab 11/11/19 04:00 Ordered Immunochemical Fe tejas OCB Routine Lab 11/07/19 11:08 Uncollected Magnesium AM LABS Lab 11/11/19 04:00 Ordered Phosphorus AM LAB S Lab 11/11/19 04:00 Ordered Labs from last 24 hours 11/10/19 11/10/19 11/10/19 10:49 06:20 04:06 WBC 8.2 RBC 2.95 L Hgb 9.0 L Hct 28.1 L MCV 95.3 H MCH 30.5 MCHC 32.0 RDW 14.0 Plt Count 125 L MPV 10.0 Neut % (Auto) 69.7 Lymph % (Auto) 17.0 [place] % (Auto) 7.9 Eos % (Auto) 5.0 Baso % (Auto) 0.2 Neut # (Auto) 5.70 Lymph # (Auto) 1.4 [place] # (Auto) 0.7 Eos # (Auto) 0.4 Baso # (Auto) 0.0 Nucleated RBC % (a uto) 0 Nucleated RBCs # 0.0 Sodium Potassium Chloride Carbon Dioxide Anion Gap BUN Creatinine GFR Calculation Glucose POC Glucose 85 83 Calculated Osmolal ity Calcium Phosphorus Magnesium Total Bilirubin AST ALT Alkaline Phosphata se Total Protein Albumin Globulin 11/10/19 11/10/19 11/09/19 04:06 00:26 22:28 WBC RBC Hgb Hct MCV MCH MCHC RDW Plt Count MPV Neut % (Auto) Lymph % (Auto) [place] % (Auto) Eos % (Auto) Baso % (Auto) Neut # (Auto) Lymph # (Auto) [place] # (Auto) Eos # (Auto) Baso # (Auto) Nucleated RBC % (a uto) Nucleated RBCs # Sodium 139 Potassium 5.0 Chloride 104 Carbon Dioxide 33 H Anion Gap 7.0 BUN 22 Creatinine 1.0 GFR Calculation 74.3 L Glucose 111 POC Glucose 132 164 Calculated Osmolal ity 285 Calcium 8.2 L Phosphorus 2.9 Magnesium 1.7 Total Bilirubin 0.2 AST 45 H ALT 32 Alkaline Phosphata se 139 H Total Protein 4.5 L Albumin 2.5 L Globulin 2.0 11/09/19 11/09/19 20:19 15:39 WBC RBC Hgb Hct MCV MCH MCHC RDW Plt Count MPV Neut % (Auto) Lymph % (Auto) [place] % (Auto) Eos % (Auto) Baso % (Auto) Neut # (Auto) Lymph # (Auto) [place] # (Auto) Eos # (Auto) Baso # (Auto) Nucleated RBC % (a uto) Nucleated RBCs # Sodium Potassium Chloride Carbon Dioxide Anion Gap BUN Creatinine GFR Calculation Glucose POC Glucose 247 198 Calculated Osmolal ity Calcium Phosphorus Magnesium Total Bilirubin AST ALT Alkaline Phosphata se Total Protein Albumin Globulin Vitals: Last Vital Signs Temp 97.9 F 11/10/19 10:52 Pulse 70 11/10/19 10:52 Resp 12 11/10/19 10:52 BP 127/76 11/10/19 10:52 Pulse Ox 96 11/10/19 10:52 Discharge Plan Discharge Patient Disposition: Xfer SNF Condition: Stable Prescriptions: New sulfamethoxazole-trimethoprim 800-160 mg tablet 1 tab PO BID 14 Days Qty: 28 RF: 0 Lantus U-100 Insulin 100 unit/mL Solution 30 unit SUBCUT BREAKFAST Qty: 10 RF: 0 aspirin 325 mg Tablet,Delayed Release (Dr/Ec) 325 mg PO DAILY 30 Days Qty: 30 RF: 0 calcium carbonate 200 mg calcium (500 mg) Tablet,Chewable 500 mg PO BID 30 Days Qty: 60 RF: 0 Vitamin D3 25 mcg (1,000 unit) Tablet 1,000 unit PO DAILY 30 Days Qty: 30 RF: 0 Lantus U-100 Insulin 100 unit/mL Solution 70 unit SUBCUT BEDTIME Qty: 10 RF: 0 losartan 50 mg Tablet 50 mg PO DAILY 30 Days Qty: 30 RF: 0 Ferrex 150 150 mg iron Capsule 150 mg PO BIDWM 30 Days Qty: 30 RF: 0 metoprolol tartrate 25 mg Tablet 12.5 mg PO BID 30 Days Qty: 30 RF: 0 Lyrica 50 mg Capsule 50 mg PO BID Qty: 30 RF: 0 sennosides-docusate sodium 8.6-50 mg Tablet 2 tab PO BID 30 Days Qty: 120 RF: 0 cefuroxime axetil 250 mg Tablet 500 mg PO BID 14 Days Qty: 56 RF: 0 Novolog U-100 Insulin aspart 100 unit/mL Solution See Rx Instructions .ROUTE .COMPLEX 30 Days Qty: 10 RF: 0 Carafate 1 gram tablet 1 gm PO BID 28 Days Qty: 56 RF: 0 Protonix 40 mg tablet,delayed release (DR/EC) 40 mg PO BID 30 Days Qty: 60 RF: 0 enoxaparin 40 mg/0.4 mL syringe 40 mg SUBCUT DAILY 28 Days RF: 0 Continued duloxetine [Cymbalta] 60 mg capsule,delayed release(DR/EC) 30 mg PO DAILY RF: 0 tramadol 50 mg tablet 50 - 100 mg PO Q4-5H MDD 5 PRN (Reason: Pain, Moderate) RF: 0 morphine 15 mg tablet 15 - 30 mg PO Q4-5H MDD 5/DAY PRN (Reason: Pain, Moderate) RF: 0 potassium chloride [Klor-Con M20] 20 mEq tablet,ER particles/crystals 20 meq PO BID RF: 0 niacin 100 mg tablet 1,000 mg PO BID RF: 0 donepezil 10 mg tablet 10 mg PO DAILY RF: 0 alprazolam 0.25 mg tablet 0.25 mg PO BID RF: 0 rosuvastatin [Crestor] 5 mg tablet 5 mg PO DAILY RF: 0 levothyroxine 25 mcg capsule 25 mcg PO DAILY RF: 0 terazosin 1 mg capsule 1 mg PO DAILY RF: 0 nitroglycerin [Nitrostat] 0.4 mg tablet, sublingual 0.4 mg SUBLINGUAL Q5M PRN (Reason: Chest Pain) RF: 0 trazodone 50 mg Tablet 50 mg PO BEDTIME RF: 0 ClearLax 17 gram Powder In Packet 17 g PO DAILY RF: 0 Ventolin HFA 90 mcg/actuation Hfa Aerosol Inhaler 2 puff INHALATION 6XD MDD 5/DAY PRN (Reason: Pain, Moderate) RF: 0 tizanidine 4 mg Capsule 4 mg PO TID RF: 0 Advair HFA 230-21 mcg/actuation Hfa Aerosol Inhaler 2 puff INHALATION BID RF: 0 Trulicity 0.75 mg/0.5 mL Pen Injector 1 SUBCUT Q7D RF: 0 Narcan 4 mg/actuation Frederic,Non-Aerosol 1 spray INTRANASAL Q2M PRN (Reason: (Drug) Ingestion) RF: 0 Linzess 72 mcg Capsule 72 mcg PO DAILY RF: 0 Discontinued hydrochlorothiazide 50 mg tablet 50 mg PO DAILY RF: 0 labetalol 200 mg tablet 400 mg PO QID RF: 0 aspirin [Aspir-Naila] 325 mg tablet,delayed release (DR/EC) 325 mg PO DAILY RF: 0 omeprazole 20 mg capsule,delayed release(DR/EC) 20 mg PO DAILY RF: 0 losartan 50 mg Tablet 25 mg PO DAILY RF: 0 loratadine 10 mg Tablet 10 mg PO DAILY RF: 0 Discharge Orders: Discharge Order (Routine); Ordered 11/08/19 Ordered By: Isaiah Nava Other Ambulatory Orders: Complete Blood Count w/Auto (DAILY) Timeframe: 20191112 Location: Determined by Patient Ordered By: Enzo Guan Complete Blood Count w/Auto (DAILY) Timeframe: 20191113 Location: Determined by Patient Ordered By: Enzo Guan Complete Blood Count w/Auto (DAILY) Timeframe: 20191114 Location: Determined by Patient Ordered By: Enzo Guan Complete Blood Count w/Auto (DAILY) Timeframe: 20191115 Location: Determined by Patient Ordered By: Enzo Guan Complete Blood Count w/Auto (DAILY) Timeframe: 20191116 Location: Determined by Patient Ordered By: Enzo Guan Complete Blood Count w/Auto (Routine) Timeframe: 1 Day Location: Determined by Patient Ordered By: Enzo Guan Comprehensive Metabolic Panel (Routine) Timeframe: 1 Day Facility: [facility] - Location: Lab - Main Lab Ordered By: Enzo GIBSON 30 day event monitor (Routine) Timeframe: 1 Day Facility: [facility] - Location: Cardiac Diagnostic Laboratory Ordered By: Enzo GIBSON 30 day event monitor (Routine) Timeframe: 1 Day Facility: [facility] - Location: Cardiac Diagnostic Laboratory Ordered By: Enzo Guan Referrals: Estephanie Arteaga MD [Physician] - 1 month (You have an appointment with Dr. Arteaga on November 25 at 9:30A.M. If you have any questions or need to reschedule. Please call ) Mac Fairbanks MD [Physician] - 1 month (You have an appointment with Dr. Fabian on December 10 at 9:00A.M. if you have any questions or neeed to reschedule. Please call ) Conner Cadena MD [Physician] - 1 month (You have an follow-up appointment with Dr. Cadena on December 21 at 1:30P.M. If have you any questions or need to reschedule. Please call ) Isaiah Nava DO [Physician] - 11/18/19 11:00 am (You hae an appointment with Dr. nava in his office at [facility] on November 17 at 11:00am.) Discharge Diet: Diabetic Discharge Activity: Limit activity as instructed Patient Instructions: Myocardial Infarction (DC), Atrial Fibrillation (DC), Anemia (DC) Activity Restrictions/Additional Instructions: -Please monitor hemoglobin daily for the next 5 days, if hemoglobin drops below 8, bring to emergency room for transfusion of PRBC -Please take Protonix 40 twice daily, Carafate twice daily, follow-up with general surgery in 1 month for consideration of EGD and colonoscopy -For atrial fibrillation, paroxysmal, wear event monitor for 1 month, follow-up with cardiology -For DVT prophylaxis he has been discharged on lovenox 40 mg daily for 28 days and aspirin 325 daily -please follow-up with Dr. Nava -For your history of CVA, continue aspirin and statin, follow-up with Dr. Arteaga -Please follow-up with cardiology -If you have recurrent strokelike symptoms, chest pain, bloody or black stools come to emergency room Orthopedic activity orders Nonweightbearing right lower extremity Out of bed to chair frequently Physical therapy for upper extremity conditioning and gait and transfer training maintaining nonweightbearing right lower extremity Elevate right lower extremity on one to 2 pillows decrease pain and swelling Maintain patient in reusable plastic splint and foam pading Patient may shower plastic bag can be applied above level of the splint and padd ing that will keep it from getting wet. There is no need to change the patient's dressing as this will be done as orthopedic follow-up visit on 11/18/2019. If there is a concern about changing the dressing. The dressing may be removed. His incision may be inspected. The incision sites medially and laterally about the right ankle can be rinsed with sterile saline and then triple antibiotic applied to the incision lines followed by application of Telfa 4 x 4 and ABDs pads followed by a Kerlix and then a new Shady wrap from toes to calf. Please call Dr. 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 Diagnoses CVA (cerebral vascular accident) I63.9 Paroxysmal A-fib I48.0 NSTEMI (non-ST elevated myocardial infarction) I21.4 Fall at home W19.XXXA; Y92.009 Encounter type: initial encounter Open bimalleolar fracture of right ankle S82.841B Encounter type: initial encounter Open fracture type: open type I or II ASHD (arteriosclerotic heart disease) I25.10 Diabetes E11.22; N18.3; Z79.4 Diabetes mellitus type: type 2 Diabetes mellitus intermediate school teacher insulin use: with intermediate school teacher use Diabetes mellitus complication status: with kidney complications Diabetes mellitus complication detail: with chronic kidney disease Chronic kidney disease stage: stage 3 (moderate) Polyneuropathy G62.9 RLS (restless legs syndrome) G25.81 COPD (chronic obstructive pulmonary disease) J44.9 Anemia D64.9
[2019-11-10] MEDS: TRAMadol 50 mg Tablet PO (11:59)
--- NOTE | 2019-11-10 12:16 | PC.NURSE ---
Patient discharge to [facility]; patient taken via wheel [facility] to [facility] for a halter monitor placement. Will be picked up by transport from [facility] for transportation to [facility]. Patient sent with all belongings as well as discharge instructions. Report called to Alyssia ESPITIA at [facility].
== END 2019-11-10 12:10 | disposition skilled nursing facility (03) | DRG 492 ==
LOC: ER 11-05 00:45 → OR 11-05 00:59 → ICU 11-05 05:12 → CSU 11-05 16:15
PROVIDERS: Emergency Medicine; Orthopaedic Surgery; Admitting Provider Hospitalist; Family Provider Family Medicine; PCP Family Medicine; Visit Provider Family Medicine
PROC: 0SSF04Z Reposition Right Ankle Joint with Internal Fixation Device, Open Approach (ICD-10-PCS; principal; 2019-11-05 02:00)
DX: S82.841B Displaced bimalleolar fracture of right lower leg, initial encounter for open fracture type I or II (principal); I21.A1 Myocardial infarction type 2; I25.10 Atherosclerotic heart disease of native coronary artery without angina pectoris; E78.5 Hyperlipidemia, unspecified; J44.9 Chronic obstructive pulmonary disease, unspecified; I48.0 Paroxysmal atrial fibrillation; W19.XXXA Unspecified fall, initial encounter; Y92.009 Unspecified place in unspecified non-institutional (private) residence as the place of occurrence of the external cause; E11.42 Type 2 diabetes mellitus with diabetic polyneuropathy; N18.3 Chronic kidney disease, stage 3 (moderate); E11.22 Type 2 diabetes mellitus with diabetic chronic kidney disease; I12.9 Hypertensive chronic kidney disease with stage 1 through stage 4 chronic kidney disease, or unspecified chronic kidney disease; G25.81 Restless legs syndrome; D63.1 Anemia in chronic kidney disease; Z86.73 Personal history of transient ischemic attack (TIA), and cerebral infarction without residual deficits
CPT/HCPCS: 12345; 36415; 36416; 70450; 70496; 70498; 71045; 73590; 73610; 73630; 76000; 80048; 80053; 81001; 82728; 82962; 83036; 83540; 83550; 83735; 84100; 84443; 84484; 85025; 85045; 85610; 86850; 86900; 87070; 87075; 87635; 93005; 93306; 96372; 96375; 97110; 97116; 97162; 97166; 97530; 97535; 97760; 99283; C1713; J0330; J0690; J1170; J1580; J1650; J1815 ×2; J2270; J2405; J2704; J3010; J3490; J7030; Q9967

== ENCOUNTER 2019-11-15 10:15 | Outpatient (CLI) | payer MEDICARE, MEDICAID, SELFPAY | END 2019-11-15 10:16 | disposition home or self-care (01) | PROVIDERS: PCP Family Medicine; Visit Provider Family Medicine | DX: E11.21 Type 2 diabetes mellitus with diabetic nephropathy (principal) | CPT/HCPCS: 85014; 85018 ==

== ENCOUNTER 2019-11-16 14:06 | Outpatient (CLI) | payer MEDICARE, MEDICAID, SELFPAY ==
[2019-11-16 14:59] LABS: Basophils # 0.1 10^3/uL (0.0-0.1); Basophils % 0.7 %; Eosinophils # 0.4 10^3/uL (0.0-0.8); Eosinophils % 3.7 %; Hematocrit 27.9 % (42.0-52.0); Hemoglobin 8.5 g/dL (11.7-16.6); Lymphocytes # 1.8 10^3/uL (0.8-4.8); Lymphocytes % 18.5 %; Mean Corpuscular HGB Conc 30.5 g/dL (30.0-36.0); Mean Corpuscular Hemoglobin 29.5 pg (28.0-34.0); Mean Corpuscular Volume 96.9 fL (80-94); Mean Platelet Volume 10.8 fL (7.4-10.4); Monocytes # 0.7 10^3/uL (0.2-0.9); Monocytes % 7.1 %; Neutrophils # 6.29 10^3/uL (1.8-7.7); Neutrophils % 66.1 %; Nucleated Red Blood Cells % 0.2 %; Platelet Count 249 10^3/cmm (130-400); Red Blood Count 2.88 10^6/uL (4.1-5.3); Red Cell Distribution Width 14.6 % (12.1-15.1); White Blood Count 9.5 10^3/uL (4.0-10.0)
== END 2019-11-16 14:07 | disposition home or self-care (01) ==
LOC: LAB 14:09
PROVIDERS: PCP Family Medicine; Visit Provider Family Medicine
DX: D64.9 Anemia, unspecified (principal)
CPT/HCPCS: 85025

== ENCOUNTER → 2019-11-18 12:16 | Outpatient (BNVA) | payer MEDICARE, MEDICAID, SELFPAY | PROVIDERS: PCP Family Medicine; Visit Provider Orthopaedic Surgery | DX: S82.841B Displaced bimalleolar fracture of right lower leg, initial encounter for open fracture type I or II (principal); X58.XXXA Exposure to other specified factors, initial encounter | CPT/HCPCS: 73610 ==

== ENCOUNTER → 2019-12-03 08:12 | Outpatient (BNVA) | payer MEDICARE, MEDICAID, SELFPAY | PROVIDERS: PCP Family Medicine; Referring Provider Orthopaedic Surgery; Visit Provider Orthopaedic Surgery | DX: S82.841D Displaced bimalleolar fracture of right lower leg, subsequent encounter for closed fracture with routine healing (principal); X58.XXXD Exposure to other specified factors, subsequent encounter; Z47.89 Encounter for other orthopedic aftercare | CPT/HCPCS: 73610 ==

== ENCOUNTER 2019-12-03 10:56 | Outpatient (CLI) | payer MEDICARE, MEDICAID, SELFPAY | END 2019-12-03 10:57 | disposition home or self-care (01) | LOC: SPT 10:56 | PROVIDERS: PCP Family Medicine; Visit Provider Orthopaedic Surgery | DX: Z46.89 Encounter for fitting and adjustment of other specified devices (principal); S82.841E Displaced bimalleolar fracture of right lower leg, subsequent encounter for open fracture type I or II with routine healing; X58.XXXD Exposure to other specified factors, subsequent encounter; S82.841D Displaced bimalleolar fracture of right lower leg, subsequent encounter for closed fracture with routine healing; Z47.89 Encounter for other orthopedic aftercare | CPT/HCPCS: 73610; 97760; L4361 ==